=== PATIENT | female | born 1990 | race Caucasian/White ===

== ENCOUNTER 2020-08-13 10:23 | Outpatient (REF) | payer OTHER, SELFPAY ==
[2020-08-13 12:03] LABS: Alanine Aminotransferase 71 U/L (0-31); Albumin Level 4.3 g/dL (3.5-5.0); Alkaline Phosphatase 76 U/L (39-117); Anion Gap 13 (12-20); Aspartate Amino Transferase 82 U/L (5-31); Bilirubin Total 0.6 mg/dL (0.0-1.0); Blood Urea Nitrogen 10 mg/dL (9-16); Calcium 9.6 mg/dL (8.4-10.2); Carbon Dioxide 23 mmol/L (22-29); Chloride 106 mmol/L (96-108); Cholesterol 161 mg/dL; Estimated Glomerular Filt Rate > 60; Glucose Fasting 146 mg/dL (60-99); HDL Cholesterol 29 mg/dL; LDL Cholesterol Calculated 91 mg/dl; Potassium 4.3 mmol/L (3.3-5.1); Sodium 138 mmol/L (135-145); Total Protein 6.9 g/dL (6.5-8.0); Triglycerides 205 mg/dL
[2020-08-13 12:05] LABS: TSH reflex Free T4 0.57 uIU/mL (0.32-4.0)
[2020-08-13 12:14] LABS: Creatinine Urine 187.35 mg/dL; Microalbum/Creatinine Ratio Ur 58.7 ug/mg cr
[2020-08-14 08:43] LABS: HBS Num1 > 1000.00 mIU/mL (0-7.99); ~Hepatitis B Surface Antibody REACTIVE (Nonreactive)
[2020-08-18 09:57] LABS: TS Negative Control Passed; TS Panel A 0; TS Panel B 0; TS Positive Control Passed; TSpotTB Negative (SeeBelow)
== END 2020-08-13 10:24 | disposition home or self-care (01) ==
LOC: HO.HMGCLDS 10:23
PROVIDERS: PCP Internal Medicine; Visit Provider Internal Medicine
DX: I10 Essential (primary) hypertension (principal); E11.9 Type 2 diabetes mellitus without complications; E66.9 Obesity, unspecified
CPT/HCPCS: 36415; 80053; 80061; 82043; 84443; 86481; 86706

== ENCOUNTER → 2020-09-01 12:51 | Outpatient (BNVA) | payer OTHER, SELFPAY | PROVIDERS: PCP Internal Medicine; Visit Provider Physician Assistant | DX: E66.01 Morbid (severe) obesity due to excess calories (principal); Z68.41 Body mass index [BMI] 40.0-44.9, adult | CPT/HCPCS: 99202 ==

== ENCOUNTER 2020-09-18 11:00 | Outpatient (RCR) | payer OTHER, SELFPAY ==
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
--- NOTE | 2020-09-25 08:18 | MHC.PT.DC ---
[employer] [place] Office [place] Office [place] Office [address] Richa Cote [address] [phone] F: [phone] F: [phone] F: [phone] F: [phone] Physical Therapy Discharge Report Diagnosis: CERVICAL SPINE STRAIN Date of Surgery: Date of Evaluation: 09/07/20 Date of Discharge: 09/24/20 Treatments to Date: 2 Cancellations to Date: 0 No Shows to Date: 2 Discharge Status: Visit Non-compliance Discharge Summary: WE WERE ABLE TO INITIATE A HEP AND EDUC Pt RE POSTURE/ IMPORTANCEOF IMPROVED BODY MECH ON HER CERVICAL REGION- Pt NO-SHOWED HER LAST 2 APPTS DESPITE REMINDER CALLS AND TEXTS RE SCHED APPTS AND IS D/C AT THIS TIME- SHE DID NOT MEET HER PT GOALS AT THIS TIME. Electronically signed by: Verito Barker,PT Please sign and return to therapist. Thank you for your referral.
== END 2020-09-25 08:19 | disposition other institution (70) ==
LOC: HO.PTCHIC 11:00
PROVIDERS: PCP Internal Medicine; Visit Provider Internal Medicine
DX: S13.4XXA Sprain of ligaments of cervical spine, initial encounter (principal)
CPT/HCPCS: 97110; 97161; 97530

== ENCOUNTER → 2020-09-29 08:06 | Outpatient (BNVA) | payer OTHER, SELFPAY | PROVIDERS: PCP Internal Medicine; Visit Provider Physician Assistant ==

== ENCOUNTER 2021-04-30 10:53 | Outpatient (REF) | payer OTHER, SELFPAY ==
[2021-04-30 14:25] LABS: Estimated Average Glucose 214 mg/dL; Hemoglobin A1c % 9.1 %
[2021-04-30 14:33] LABS: Alanine Aminotransferase 146 U/L (0-31); Albumin Level 4.7 g/dL (3.5-5.0); Alkaline Phosphatase 101 U/L (39-117); Anion Gap 17 (12-20); Aspartate Amino Transferase 109 U/L (5-31); Bilirubin Total 0.6 mg/dL (0.0-1.0); Blood Urea Nitrogen 10 mg/dL (9-16); Calcium 10.6 mg/dL (8.4-10.2); Carbon Dioxide 21 mmol/L (22-29); Chloride 102 mmol/L (96-108); Cholesterol 174 mg/dL; Estimated Glomerular Filt Rate > 60; Glucose Fasting 265 mg/dL (60-99); HDL Cholesterol 24 mg/dL; LDL Cholesterol Calculated 102 mg/dl; Potassium 4.1 mmol/L (3.3-5.1); Sodium 136 mmol/L (135-145); Total Protein 7.4 g/dL (6.5-8.0); Triglycerides 244 mg/dL
== END 2021-04-30 10:54 | disposition home or self-care (01) ==
LOC: HO.HMGCLDS 10:53
PROVIDERS: PCP Internal Medicine; Visit Provider Internal Medicine
DX: E11.9 Type 2 diabetes mellitus without complications (principal); I10 Essential (primary) hypertension
CPT/HCPCS: 36415; 80053; 80061; 83036

== ENCOUNTER 2022-04-12 09:32 | Outpatient (REF) | payer OTHER, SELFPAY ==
[2022-04-12 12:28] LABS: Alanine Aminotransferase 20 U/L (0-31); Albumin Level 4.8 g/dL (3.5-5.0); Alkaline Phosphatase 70 U/L (39-117); Aspartate Amino Transferase 15 U/L (5-31); Bilirubin Direct 0.2 mg/dL (0.0-0.5); Bilirubin Total 0.3 mg/dL (0.0-1.0); Total Protein 7.6 g/dL (6.5-8.0)
[2022-04-12 14:24] LABS: Estimated Average Glucose 123 mg/dL; Hemoglobin A1C 149.9942 umol/L; Hemoglobin A1c % 5.9 %
[2022-04-12 14:26] LABS: Alanine Aminotransferase 21 U/L (0-31); Albumin Level 4.8 g/dL (3.5-5.0); Alkaline Phosphatase 70 U/L (39-117); Anion Gap 15 (12-20); Aspartate Amino Transferase 16 U/L (5-31); Bilirubin Total 0.3 mg/dL (0.0-1.0); Blood Urea Nitrogen 9 mg/dL (9-16); Calcium 10.4 mg/dL (8.4-10.2); Carbon Dioxide 23 mmol/L (22-29); Chloride 105 mmol/L (96-108); Cholesterol 168 mg/dL; Estimated Glomerular Filt Rate > 60; Glucose Fasting 126 mg/dL (60-99); HDL Cholesterol 33 mg/dL; Iron 74 mcg/dL (30-160); LDL Cholesterol Calculated 97 mg/dl; Percent Iron Saturation 19 % (15-50); Potassium 4.5 mmol/L (3.3-5.1); Sodium 138 mmol/L (135-145); Total Iron Binding Capacity 389 mcg/dL (228-428); Total Protein 7.7 g/dL (6.5-8.0); Triglycerides 194 mg/dL; Unsaturated Iron Binding 315 ug/dL
[2022-04-12 14:59] LABS: Creatinine Urine 39.22 mg/dL; Microalbum/Creatinine Ratio Ur 35.6 ug/mg cr
[2022-04-13 09:37] LABS: Thyroid Peroxidase Antibodies 3 IU/mL (<9)
== END 2022-04-12 09:33 | disposition home or self-care (01) ==
LOC: HO.HMGCLDS 09:32
PROVIDERS: PCP Internal Medicine; Visit Provider Internal Medicine
DX: R74.8 Abnormal levels of other serum enzymes (principal); E11.9 Type 2 diabetes mellitus without complications; E66.01 Morbid (severe) obesity due to excess calories; E78.5 Hyperlipidemia, unspecified; R53.83 Other fatigue; Z68.41 Body mass index [BMI] 40.0-44.9, adult
CPT/HCPCS: 36415; 80053; 80061; 80076; 82043; 82248; 83036; 83540; 84443; 86376

== ENCOUNTER → 2022-04-13 09:13 | Outpatient (BNVA) | payer OTHER, SELFPAY | PROVIDERS: PCP Internal Medicine; Visit Provider Dietitian, Registered | DX: E11.9 Type 2 diabetes mellitus without complications (principal) | CPT/HCPCS: 97802 ==

== ENCOUNTER 2022-06-18 10:00 | Outpatient (REF) | payer OTHER, SELFPAY ==
[2022-06-18 11:17] LABS: MANUAL DIFF FLAG NO
[2022-06-18 11:25] LABS: Basophils Percent Auto 0.4 % (0-2); Eosinophils Absolute Auto 0.3 X10*3/uL (0.0-0.4); Eosinophils Percent Auto 3.4 % (0-4); Hematocrit 41.7 % (37.0-47.0); Imm Gran Abs Auto 0.02 X10*3/uL (0.00-0.03); Imm Gran Pct Auto 0.3 % (0.0-0.4); Lymphocytes Absolute Auto 2.2 X10*3/uL (1.2-4.9); Lymphocytes Percent Auto 29.7 % (20-40); Mean Corpuscular HGB Conc 33.6 g/dl (31.0-35.0); Mean Corpuscular Hemoglobin 28.5 pg (27.0-33.0); Mean Corpuscular Volume 84.9 fL (80.0-98.0); Mean Platelet Volume 11.5 fL (9.4-12.3); Monocytes Absolute Auto 0.6 X10*3/uL (0.1-1.2); Monocytes Percent Auto 7.4 % (2-11); Neutrophils Absolute Auto 4.4 x10*3/uL (2.0-8.3); Neutrophils Percent Auto 58.8 % (45-73); Platelet Count 255 X10*3/uL (160-400); Red Blood Count 4.91 X10*6/uL (4.20-5.50); Red Cell Distribution Width 12.7 % (11.0-16.0); White Blood Count 7.4 X10*3/uL (4.8-10.8)
[2022-06-18 11:47] LABS: Alanine Aminotransferase 25 U/L (0-31); Albumin Level 4.6 g/dL (3.5-5.0); Alkaline Phosphatase 70 U/L (39-117); Anion Gap 11 (12-20); Aspartate Amino Transferase 15 U/L (5-31); Bilirubin Total 0.8 mg/dL (0.0-1.0); Blood Urea Nitrogen 8 mg/dL (9-16); Calcium 10.1 mg/dL (8.4-10.2); Carbon Dioxide 23 mmol/L (22-29); Chloride 111 mmol/L (96-108); Estimated Glomerular Filt Rate > 60; Glucose Fasting 130 mg/dL (60-99); Potassium 3.9 mmol/L (3.3-5.1); Sodium 141 mmol/L (135-145); Total Protein 6.9 g/dL (6.5-8.0)
[2022-06-18 12:05] LABS: TSH reflex Free T4 0.55 uIU/mL (0.32-4.0)
== END 2022-06-18 10:01 | disposition home or self-care (01) ==
LOC: HO.HMGCLDS 10:00
PROVIDERS: PCP Internal Medicine; Visit Provider Internal Medicine
DX: E11.9 Type 2 diabetes mellitus without complications (principal); E78.5 Hyperlipidemia, unspecified; R53.83 Other fatigue
CPT/HCPCS: 80053; 84443; 85025; 87338

== ENCOUNTER → 2022-06-30 13:48 | Outpatient (BNVA) | payer OTHER, SELFPAY | PROVIDERS: PCP Internal Medicine; Visit Provider Dietitian, Registered | DX: E11.9 Type 2 diabetes mellitus without complications (principal) | CPT/HCPCS: 97803 ==

== ENCOUNTER 2022-07-12 08:34 | Outpatient (REF) | payer OTHER, SELFPAY ==
--- NOTE | ~2022-07-12 | US_ITS ---
EXAMINATION: US ABDOMEN COMPLETE CLINICAL INFORMATION: Type 2 diabetes mellitus without complications. COMPARISON: None TECHNIQUE: Real-time imaging of the abdominal viscera. FINDINGS: PANCREAS: Normal. ABDOMINAL AORTA: The proximal, mid, and distal segments are normal in caliber. INFERIOR VENA CAVA: Visualized portions are normal. LIVER: The liver is normal in size. The liver contour is normal. There is diffuse increased liver parenchymal echogenicity, consistent with hepatic steatosis. No focal hepatic lesion. There is no intrahepatic biliary duct dilatation seen. GALLBLADDER: The gallbladder is physiologically distended without evidence of stones, sludge, polyps, wall thickening or pericholecystic fluid. COMMON BILE DUCT: Normal in caliber measuring 0.3 cm in diameter. RIGHT KIDNEY: Normal. No hydronephrosis. No renal calculi or focal parenchymal lesions. The kidney measures 9.7 cm in maximum dimension. LEFT KIDNEY: Normal. No hydronephrosis. No renal calculi or focal parenchymal lesions. The kidney measures 11.2 cm in maximum dimension. SPLEEN: Normal. The spleen measures 11.4 cm in maximum dimension. FREE FLUID: None. US/US abdomen complete IMPRESSION: Hepatic steatosis.
[2022-07-12 10:25] LABS: Estimated Average Glucose 111 mg/dL; Hemoglobin A1c % 5.5 %
[2022-07-12 10:31] LABS: Cholesterol 128 mg/dL; HDL Cholesterol 25 mg/dL; LDL Cholesterol Calculated 84 mg/dl; Triglycerides 97 mg/dL
== END 2022-07-12 08:35 | disposition home or self-care (01) ==
LOC: HO.US 08:34
PROVIDERS: PCP Internal Medicine; Visit Provider Internal Medicine
DX: E78.5 Hyperlipidemia, unspecified (principal); E11.9 Type 2 diabetes mellitus without complications; R53.83 Other fatigue
CPT/HCPCS: 36415; 76700; 80061; 83036

== ENCOUNTER 2022-10-17 09:33 | Outpatient (REF) | payer OTHER, SELFPAY ==
[2022-10-17 11:27] LABS: Appearance Urine Clear; Color Urine Yellow; Glucose Urine UA Negative (Negative); Leukocyte Esterase Urine Negative (Negative); Nitrite Urine Negative (Negative); PH 6.5 (5.0-9.0); Urine Blood Negative (Negative); Urine Ketones Negative (Negative); Urine Protein Negative (Neg-Trace)
[2022-10-17 11:30] LABS: Bacteria Urine None Seen (None Seen); Hyaline Casts Urine 0-2 /LPF (0-2); Squamous Epithelial Cell Urine 0-2 /HPF (0-2); WBC Urine 0-5 /HPF (0-5)
[2022-10-17 11:48] LABS: Baso%MD 0.7 %; Eos%MD 2.4 %; Hematocrit 39.9 % (37.0-47.0); Hemoglobin 13.3 g/dl (12.0-16.0); IG%MD 0.3 %; Lymph%MD 26.2 %; Mean Corpuscular HGB Conc 33.3 g/dl (31.0-35.0); Mean Corpuscular Hemoglobin 29.4 pg (27.0-33.0); Mean Corpuscular Volume 88.3 fL (80.0-98.0); Mean Platelet Volume 11.2 fL (9.4-12.3); Mono%MD 7.9 %; Neut%MD 62.5 %; Platelet Count 280 X10*3/uL (160-400); Red Blood Count 4.52 X10*6/uL (4.20-5.50); Red Cell Distribution Width 12.9 % (11.0-16.0); White Blood Count 8.9 X10*3/uL (4.8-10.8)
[2022-10-17 11:58] LABS: Estimated Average Glucose 103 mg/dL; Hemoglobin A1c % 5.2 %
[2022-10-17 12:11] LABS: Alanine Aminotransferase 16 U/L (0-31); Albumin Level 4.4 g/dL (3.5-5.0); Alkaline Phosphatase 59 U/L (39-117); Anion Gap 10 (12-20); Aspartate Amino Transferase 12 U/L (5-31); Bilirubin Total 0.4 mg/dL (0.0-1.0); Blood Urea Nitrogen 10 mg/dL (9-16); Carbon Dioxide 23 mmol/L (22-29); Chloride 112 mmol/L (96-108); Estimated Glomerular Filt Rate > 60; Glucose Fasting 107 mg/dL (60-99); Potassium 4.3 mmol/L (3.3-5.1); Sodium 141 mmol/L (135-145); Total Protein 6.8 g/dL (6.5-8.0)
[2022-10-17 12:19] LABS: Band Neutrophils Percent 3 % (3-5); Eosinophils Absolute Manual 0.1 X10*3/uL (0.0-0.4); Eosinophils Percent Manual 1 % (0-4); Lymphocytes Absolute Manual 3.2 X10*3/uL (1.2-4.9); Lymphocytes Percent Manual 36 % (20-40); Monocytes Absolute Manual 0.4 X10*3/uL (0.1-1.2); Monocytes Percent Manual 5 % (2-11); Neutrophils Absolute Manual 5.2 X10*3/uL (2.0-8.3); Neutrophils Percent Manual 55 % (45-73)
[2022-10-17 12:20] LABS: Platelet Estimate NORMAL (NORMAL); Platelet Morphology Comment NORMAL; RBC Morphology NORMAL
[2022-10-17 12:30] LABS: TSH reflex Free T4 1.18 uIU/mL (0.32-4.0)
== END 2022-10-17 09:34 | disposition home or self-care (01) ==
LOC: HO.HMGCLDS 09:33
PROVIDERS: PCP Internal Medicine; Visit Provider Internal Medicine
DX: R00.2 Palpitations (principal); E11.65 Type 2 diabetes mellitus with hyperglycemia; G47.30 Sleep apnea, unspecified
CPT/HCPCS: 36415; 80053; 81001; 83036; 84443; 85007; 85027; 87086

== ENCOUNTER → 2022-11-03 13:56 | Outpatient (REF) | payer OTHER, SELFPAY | LOC: HO.SL 13:56 | PROVIDERS: PCP Internal Medicine; Visit Provider Internal Medicine | DX: Z13.89 Encounter for screening for other disorder (principal) ==

== ENCOUNTER → 2022-12-21 09:16 | Outpatient (REF) | payer OTHER, SELFPAY ==
--- NOTE | 2022-12-21 09:18 | HM_ITS ---
Conclusion: 1. Patient was monitored for total period of 3 days 2. Baseline was normal sinus rhythm with average heart rate of 83 beats per minute 3. No significant pauses noted 4. Very rare ectopy noted 5. No patient reported events MTDD
== END ==
LOC: HO.CARD 09:16
PROVIDERS: Visit Provider Internal Medicine
DX: R00.2 Palpitations (principal)
CPT/HCPCS: 93242

== ENCOUNTER → 2022-12-21 09:18 | Outpatient (BNV) | payer OTHER, SELFPAY | PROVIDERS: Visit Provider Internal Medicine Cardiovascular Disease | DX: R00.2 Palpitations (principal) | CPT/HCPCS: 93244 ==

== ENCOUNTER 2023-01-25 15:07 | Outpatient (AMB) | payer OTHER, SELFPAY ==
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
[2023-01-25 16:11] VITALS: BP 132/78; PULSE 78; TEMP 37.3; O2SAT 78; BMI 32.1
== END 2023-01-25 16:49 | disposition home or self-care (01) ==
PROVIDERS: Visit Provider Internal Medicine
DX: R09.89 Other specified symptoms and signs involving the circulatory and respiratory systems (principal)
CPT/HCPCS: 99214

== ENCOUNTER 2023-01-25 16:27 | Outpatient (REF) | payer OTHER, SELFPAY ==
--- NOTE | ~2023-01-25 | XR_ITS ---
EXAMINATION: XR CHEST CLINICAL INFORMATION: Cough. COMPARISON: 9 12/28/2016 chest radiographs. TECHNIQUE: 2 views of the chest were obtained. FINDINGS: No significant abnormality is noted involving the heart, lungs, mediastinum, bony thorax or soft tissues. XR/XR chest 2V IMPRESSION: No acute cardiopulmonary process.
== END 2023-01-25 16:28 | disposition home or self-care (01) ==
LOC: HO.HMGCX 16:27
PROVIDERS: PCP Internal Medicine; Visit Provider Internal Medicine
DX: R05.9 Cough, unspecified (principal)
CPT/HCPCS: 71046

== ENCOUNTER 2023-03-27 12:39 | Outpatient (AMB) | payer OTHER, SELFPAY ==
[2023-03-27 12:49] VITALS: BP 126/76; PULSE 77; O2SAT 98; BMI 35.0
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
== END 2023-03-27 14:34 | disposition home or self-care (01) ==
PROVIDERS: PCP Internal Medicine; Visit Provider Internal Medicine
DX: E11.9 Type 2 diabetes mellitus without complications (principal); R00.2 Palpitations; R09.89 Other specified symptoms and signs involving the circulatory and respiratory systems
CPT/HCPCS: 99213

== ENCOUNTER 2023-06-10 11:00 | Outpatient (AMB) | payer OTHER, SELFPAY ==
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
[2023-06-10 14:25] VITALS: BP 130/80; PULSE 78; O2SAT 99
== END 2023-06-10 15:19 | disposition home or self-care (01) ==
PROVIDERS: PCP Internal Medicine; Visit Provider Physician Assistant Medical
DX: B35.9 Dermatophytosis, unspecified (principal)
CPT/HCPCS: 99051; 99213

== ENCOUNTER 2023-06-23 13:31 | Outpatient (AMB) | payer OTHER, SELFPAY ==
[2023-06-23 13:32] VITALS: BP 118/68; PULSE 82; O2SAT 100; BMI 36.3
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
== END 2023-06-23 14:17 | disposition home or self-care (01) ==
PROVIDERS: PCP Internal Medicine; Visit Provider Internal Medicine
DX: R21 Rash and other nonspecific skin eruption (principal)
CPT/HCPCS: 99213

== ENCOUNTER 2023-09-27 13:08 | Outpatient (AMB) | payer OTHER, SELFPAY ==
[2023-09-27 13:35] VITALS: BP 132/80; PULSE 92; TEMP 36.8; O2SAT 98
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
== END 2023-09-27 14:03 | disposition home or self-care (01) ==
PROVIDERS: PCP Internal Medicine; Visit Provider Nurse Practitioner Family
DX: J06.9 Acute upper respiratory infection, unspecified (principal)
CPT/HCPCS: 99214

== ENCOUNTER 2023-09-27 14:14 | Outpatient (REF) | payer OTHER, SELFPAY ==
[2023-09-27 17:41] LABS: Influenza A PCR NEGATIVE (Negative); Influenza B PCR NEGATIVE (Negative); Resp Syncy Virus RNA Qual PCR NEGATIVE (Negative); SARS COV2 PCR INHOUSE NEGATIVE (Negative)
== END 2023-09-27 14:15 | disposition home or self-care (01) ==
LOC: HO.LAB 14:14
PROVIDERS: Visit Provider Nurse Practitioner Family
DX: J06.9 Acute upper respiratory infection, unspecified (principal)
CPT/HCPCS: 0241U

== ENCOUNTER 2023-10-31 10:52 | Outpatient (AMB) | payer OTHER, SELFPAY ==
[2023-10-31 10:54] VITALS: BP 116/66; PULSE 98; O2SAT 99; BMI 38.0
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
== END 2023-10-31 14:02 | disposition home or self-care (01) ==
PROVIDERS: PCP Internal Medicine; Visit Provider Internal Medicine
DX: N20.0 Calculus of kidney (principal); Z91.018 Allergy to other foods
CPT/HCPCS: 99213

== ENCOUNTER 2023-11-07 11:35 | Outpatient (REF) | payer OTHER, SELFPAY ==
--- NOTE | ~2023-11-07 | US_ITS ---
EXAMINATION: US RETROPERITONEAL LIMITED (RENAL ONLY) CLINICAL INFORMATION: Calculus of kidney. COMPARISON: Ultrasound abdomen complete 07/12/2022. TECHNIQUE: Real-time imaging of the kidneys. FINDINGS: RIGHT KIDNEY: 9.3 x 4.3 x 6.3 cm (SAG x AP x TRV). The kidney is normal in size, contour, and echogenicity. Renal cortical thickness is normal. No calculi or focal parenchymal lesions. No hydronephrosis. LEFT KIDNEY: 11.6 x 4.9 x 4.8 cm (SAG x AP x TRV). The kidney is normal in size, contour, and echogenicity. Renal cortical thickness is normal. No calculi or focal parenchymal lesions. No hydronephrosis. Incidental note made of an echogenic liver consistent with hepatic steatosis similar to 07/12/2022. US/US renal BI IMPRESSION: Normal-appearing kidneys without calculi.
== END 2023-11-07 11:36 | disposition home or self-care (01) ==
LOC: HO.HMGCX 11:35
PROVIDERS: PCP Internal Medicine; Visit Provider Internal Medicine
DX: N20.0 Calculus of kidney (principal)
CPT/HCPCS: 76775

== ENCOUNTER 2023-12-05 07:11 | Outpatient (REF) | payer OTHER, SELFPAY ==
[2023-12-05 10:10] LABS: MANUAL DIFF FLAG NO
[2023-12-05 10:16] LABS: Appearance Urine Turbid; Color Urine Yellow; Glucose Urine UA Negative (Negative); Leukocyte Esterase Urine Trace (Negative); Nitrite Urine Negative (Negative); PH 5.5 (5.0-9.0); UMIC TRIGGER UA YES; Urine Blood Small (1+) (Negative); Urine Ketones Negative (Negative); Urine Protein Negative (Neg-Trace)
[2023-12-05 10:22] LABS: Basophils Percent Auto 0.5 % (0-2); Eosinophils Absolute Auto 0.2 X10*3/uL (0.0-0.4); Eosinophils Percent Auto 2.7 % (0-4); Hematocrit 39.4 % (37.0-47.0); Hemoglobin 13.3 g/dl (12.0-16.0); Imm Gran Abs Auto 0.01 X10*3/uL (0.00-0.03); Imm Gran Pct Auto 0.1 % (0.0-0.4); Lymphocytes Absolute Auto 2.5 X10*3/uL (1.2-4.9); Mean Corpuscular HGB Conc 33.8 g/dl (31.0-35.0); Mean Corpuscular Hemoglobin 29.5 pg (27.0-33.0); Mean Corpuscular Volume 87.4 fL (80.0-98.0); Mean Platelet Volume 11.3 fL (9.4-12.3); Monocytes Absolute Auto 0.7 X10*3/uL (0.1-1.2); Monocytes Percent Auto 8.7 % (2-11); Neutrophils Absolute Auto 4.3 x10*3/uL (2.0-8.3); Platelet Count 263 X10*3/uL (160-400); Red Blood Count 4.51 X10*6/uL (4.20-5.50); Red Cell Distribution Width 13.2 % (11.0-16.0); White Blood Count 7.7 X10*3/uL (4.8-10.8)
[2023-12-05 10:31] LABS: Estimated Average Glucose 114 mg/dL; Hemoglobin A1C 132.7767 umol/L; Hemoglobin A1c % 5.6 % (<6.0)
[2023-12-05 10:32] LABS: Bacteria Urine 2+ (None Seen); Hyaline Casts Urine 0-2 /LPF (0-2); RBC Urine 0-2 /HPF (0-2)
[2023-12-05 11:17] LABS: Alanine Aminotransferase 21 U/L (0-31); Albumin Level 4.2 g/dL (3.5-5.0); Alkaline Phosphatase 61 U/L (39-117); Anion Gap 10 (12-20); Aspartate Amino Transferase 20 U/L (5-31); Bilirubin Total 0.3 mg/dL (0.0-1.0); Blood Urea Nitrogen 9 mg/dL (9-16); Calcium 9.8 mg/dL (8.4-10.2); Carbon Dioxide 23 mmol/L (22-29); Chloride 111 mmol/L (96-108); Cholesterol 135 mg/dL (<200); Estimated Glomerular Filt Rate > 60; Glucose Fasting 103 mg/dL (60-99); HDL Cholesterol 28 mg/dL (>40); LDL Cholesterol Calculated 87 mg/dL (<100); Potassium 4.2 mmol/L (3.3-5.1); Sodium 140 mmol/L (135-145); Triglycerides 104 mg/dL (<150)
== END 2023-12-05 07:12 | disposition home or self-care (01) ==
LOC: HO.HMGCLDS 07:11
PROVIDERS: PCP Internal Medicine; Visit Provider Internal Medicine
DX: Z13.9 Encounter for screening, unspecified (principal); N20.0 Calculus of kidney
CPT/HCPCS: 36415; 80053; 80061; 81001; 81003; 83036; 85025; 99202

== ENCOUNTER 2023-12-05 14:49 | Outpatient (AMB) | payer OTHER, SELFPAY ==
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
== END 2023-12-05 15:35 | disposition home or self-care (01) ==
PROVIDERS: PCP Internal Medicine; Visit Provider Nurse Practitioner Family
DX: Z13.9 Encounter for screening, unspecified (principal); N20.0 Calculus of kidney
CPT/HCPCS: 99203

== ENCOUNTER 2023-12-08 12:50 | Outpatient (AMB) | payer OTHER, SELFPAY ==
[2023-12-08 13:09] VITALS: BP 125/75; PULSE 86; O2SAT 97; BMI 41.6
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
== END 2023-12-08 13:34 | disposition home or self-care (01) ==
PROVIDERS: PCP Internal Medicine; Visit Provider Internal Medicine
DX: Z00.00 Encounter for general adult medical examination without abnormal findings (principal); E66.01 Morbid (severe) obesity due to excess calories; Z68.41 Body mass index [BMI] 40.0-44.9, adult; E78.5 Hyperlipidemia, unspecified; R73.9 Hyperglycemia, unspecified
CPT/HCPCS: 99395

== ENCOUNTER 2023-12-08 13:35 | Outpatient (REF) | payer OTHER, SELFPAY ==
[2023-12-08 16:51] LABS: TSH reflex Free T4 0.74 uIU/mL (0.32-4.0)
== END 2023-12-08 13:36 | disposition home or self-care (01) ==
LOC: HO.HMGCLDS 13:35
PROVIDERS: PCP Internal Medicine; Visit Provider Internal Medicine
DX: E66.01 Morbid (severe) obesity due to excess calories (principal); Z68.41 Body mass index [BMI] 40.0-44.9, adult
CPT/HCPCS: 36415; 84443

== ENCOUNTER 2024-08-16 15:10 | Outpatient (REF) | payer OTHER, SELFPAY ==
[2024-08-16 16:10] LABS: MANUAL DIFF FLAG NO
[2024-08-16 16:34] LABS: Basophils Absolute Auto 0.1 X10*3/uL (0.0-0.2); Basophils Percent Auto 0.5 % (0-2); Eosinophils Absolute Auto 0.4 X10*3/uL (0.0-0.4); Eosinophils Percent Auto 3.1 % (0-4); Hematocrit 43.5 % (37.0-47.0); Hemoglobin 14.4 g/dl (12.0-16.0); Imm Gran Abs Auto 0.06 X10*3/uL (0.00-0.03); Imm Gran Pct Auto 0.5 % (0.0-0.4); Lymphocytes Absolute Auto 3.3 X10*3/uL (1.2-4.9); Lymphocytes Percent Auto 25.4 % (20-40); Mean Corpuscular HGB Conc 33.1 g/dl (31.0-35.0); Mean Corpuscular Hemoglobin 28.7 pg (27.0-33.0); Mean Corpuscular Volume 86.8 fL (80.0-98.0); Mean Platelet Volume 11.4 fL (9.4-12.3); Monocytes Absolute Auto 0.8 X10*3/uL (0.1-1.2); Neutrophils Absolute Auto 8.3 x10*3/uL (2.0-8.3); Neutrophils Percent Auto 64.5 % (45-73); Platelet Count 302 X10*3/uL (160-400); Red Blood Count 5.01 X10*6/uL (4.20-5.50); Red Cell Distribution Width 13.7 % (11.0-16.0); White Blood Count 12.8 X10*3/uL (4.8-10.8)
[2024-08-16 16:46] LABS: Estimated Average Glucose 128 mg/dL; Hemoglobin A1C 164.1404 umol/L; Hemoglobin A1c % 6.1 % (<6.0); Total Hemoglobin (HGBA1C) 3789.2158 umol/L
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
--- OUTSIDE RECORDS SUMMARY | 2024-08-16 17:16 | XMS_ITS | Encounter Summary ---
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 [address] [place] [address] Social History Tobacco Use Types Packs/Day Years Used Date Smoking Tobacco: Every Day Cigarettes Cigars Smokeless Tobacco: Current Comments:4 years smoking his tory - 6 cigarretes / day Alcohol Use Standard Drinks/Week Comments No 0 (1 standard drink = 0.6 oz pur e alcohol) rare socail use Comments No Sex and Gender Information Value Date Recorded Sex Assigned at Not on file Legal Sex Female 6:47 AM PDT Gender Identity Not on file Sexual Orientation Not on file 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 Author Decrease soda or juice intake Diet No Gely Carpio RD Have 3 meals a day Diet No Gely Carpio RD Increase physical activity Exercise No Gely Carpio RD documented as of this encounter Visit Diagnoses Not on filedocumented in this encounter Care Teams Seam Stay Stitcher Relationship Specialty Start Date End Date Linsey Mullins PA-C [facility] [place] [address] PCP - General 07/24/18 documented as of this encounter
--- OUTSIDE RECORDS SUMMARY | 2024-08-16 17:16 | XMS_ITS | Data Portability ---
Author Organization LEANNA Leon s, [address] Address [address] [place] [address] Care Team Providers Care Heat Reader Name Role Phone [facility] Primary Care Provider [phone] Assessment No assessment recorded. Plan of Treatment Reminders Order Date Submit Date Provider Last Modified By Organization Details Last Modified Time Details Appointments None recorded. Lab rapid flu (A+B) 2022 023 [email or web address] [id number]_[facility], [address] [place] [address], [id number], 3 10:08:57 rapid strep group A, throat 2022 023 [email or web address] 20999_[facility], [address] [place] [address], [phone], 3 10:08:59 culture, respiratory [address] [facility], [address] [place] [address], [address], 3 08:06:37 hepatitis B surface Ab, quantitativ e, serum [address] [facility], [address] [place] [address], [address], 3 08:09:23 varicella zoster virus IgG Ab, QN, IA, serum [address] [facility], [address] [place] [address], [address], 3 08:09:25 measles + mumps + rubella virus IgG panel, QN, serum or plasma 2022 023 [facility] [address] [place] [address], [place], [address], 3 08:09:20 Referral None recorded. Procedures None recorded. Surgeries None recorded. Imaging None recorded. Medication Orders benzonatate 200 mg capsule 2023 024 [facility]armacy #1095, [address] [place] [address], [address], 4 12:35:42 fluticasone propionate 50 mcg/actuati on nasal spray,suspe nsion 2023 024 [facility] [address] [place] [address], [address], 4 12:35:31 amoxicillin 400 mg-potassiu m clavulanate 57 mg/5 mL oral suspension 2022 023 [facility] [address] [place] [address], [address], 3 09:41:34 Tubersol 5 tub. unit/0.1 mL intradermal injection solution 2022 023 [address], [address] [place] [address], [address], 3 18:36:02 nystatin 100,000 unit/mL oral suspension [address]/Pharmacy #0818, [address] [place] [address], [address], 3 18:35:51 pantoprazol e 40 mg tablet,shipli yed release [address]/Pharmacy #0818, [address] [place] [address], [address], 3 18:35:54 Patient TargetsNo targets recorded. Patient Instructions Encounter Date Encounter Id Patient Instructions Last Modified By Organization Details Last Modified Time 06/12/2022 [id number] What is acid reflux? Acid reflux is when the acid that is normally in your stomach backs up into the esophagus. The esophagus is the tube that carries food from your mouth to your stomach. When acid reflux causes bothersome symptoms or damage, doctors call it gastroesophageal reflux disease or GERD. What are the symptoms of acid reflux? The most common symptoms are: ? Heartburn, which is a burning feeling in the chest ? Regurgitation, which is when acid and undigested food flow back into your throat or mouth Other symptoms might include: ? Stomach or chest pain ? Trouble swallowing ? Having a raspy voice or a sore throat ? Unexplained cough ? Nausea or vomiting Is there anything I can do on my own to feel better? Yes. You might feel better if you: ? Lose weight (if you are overweight) ? Raise the head of your bed by 6 to 8 inches ? You can do this by putting blocks of wood or rubber under 2 legs of the bed or a foam wedge under the mattress. ? Avoid foods that make your symptoms worse ? For some people these include coffee, chocolate, alcohol, peppermint, and fatty foods. ? Stop smoking, if you smoke ? Avoid late meals ? Lying down with a full stomach can make reflux worse. Try to plan meals for at least 2 to 3 hours before bedtime. ? Avoid tight clothing ? Some people feel better if they wear comfortable clothing that does not squeeze the stomach area. How is acid reflux treated? There are a few main types of medicines that can help with the symptoms of acid reflux. The most common are antacids, histamine blockers, and proton pump inhibitors. All of these medicines work by reducing or blocking stomach acid. But they each do that in a different way. ? For mild symptoms, antacids can help, but they work only for a short time. Histamine blockers are stronger and last longer than antacids. You can buy antacids and most histamine blockers without a prescription. ? For frequent and more severe symptoms, proton pump inhibitors are the most effective medicines. Some of these medicines are sold without a prescription. But there are other versions that your doctor can prescribe. Sometimes, medicines cost less if you get them with a doctor's prescription. Other times, non-prescription medicines cost less. If you are worried about cost, ask your pharmacist about ways to pay less for your medicines. Should I see a doctor or nurse about my acid reflux? Some people can manage their acid reflux on their own by changing their habits or taking non-prescription medicines. But you should see a doctor or nurse if: ? Your symptoms are severe or last a long time ? You cannot seem to control your symptoms ? You have had symptoms for many years You should also see a doctor or nurse right away if you: ? Have trouble swallowing, or feel as though food gets stuck on the way down ? Lose weight when you are not trying to ? Have chest pain ? Choke when you eat ? Vomit blood or have bowel movements that are red, black, or look like tar What if my child or teenager has acid reflux? If your child or teenager has acid reflux, take them to see a doctor or nurse. Do not give your child medicines to treat acid reflux without talking to a doctor or nurse. In children, acid reflux can be caused by a number of problems. It's important to have a doctor or nurse check for these problems before trying any treatments. Not available 06/12/2022 19:32:05 Patients should be advised to change their toothpaste to a sodium lauryl sulfate (SLS)-free formulation. An increased frequency of recurrent aphthous stomatitis (HALLEY) related to SLS-containing dentifrice has been reported, although other studies found no such association. However, because SLS-dentifrices are in widespread use, it seems unlikely that this agent truly predisposes to, or causes, most HALLEY. Patients should also be instructed to avoid recognized trigger foods, and acidic foods and drinks. There is some evidence of benefit from vitamin B12, even in the absence of any deficiency; supplementation with oral vitamin B12 (cyanocobalamin) has been shown to be effective in studies, irrespective of serum B12 levels. Adjunctive antimicrobial agents may also be of some value, in part by reducing secondary infection. These may reduce the severity and pain of ulceration. [ [email or web address] Not available 06/12/2022 19:34:51 12/22/2022 [id number] This physical do es not replace the annual physical to be performed by your PCP. There may be additional screening tests that they will perform that we do not in the urgent care setting. Failure to follow up as recommended may result in significant adverse health consequences. ? If your symptoms worsen or you develop new symptoms that concern you, go to the emergency department for further evaluation. Not available 12/22/2022 12:54:19 02/01/2023 [id number] keeping ears dry : care instructions Not available 02/01/2023 18:46:31 perforated eardr um: care instructions Not available 02/01/2023 18:46:31 04/19/2023 [id number] middle ear fluid : care instructions Not available 04/19/2023 10:13:06 Acute Sinusitis: Care Instructions Not available 04/19/2023 10:08:56 sore throat: car e instructions Not available 04/19/2023 10:08:56 Based on your Presentation, Exam, and Lab Testing you are being diagnosed with Pharyngitis. Your Rapid Strep Test was Negative. Most likely your sore throat is being caused by a virus, post nasal drip, or silent acid reflux. I am going to send a Throat Culture to the lab for you to make sure you don't have a different form of strep in your throat. This will take about 72 hours for that result to return. We will contact you if it positive - if for some reason you don't get a copy of your results or hear from us - please contact our office. In most cases, the fluid clears up within a few months without treatment. You may need more tests if the fluid does not clear up after 3 months. For adults, decongestants that you take by mouth or spray into your nose may be helpful. If you have allergies, the doctor may prescribe a steroid medicine that you spray into your nose. The following are my other recommendations to help with symptoms and is important for this diagnosis: 1. Do not share any food or drinks - strep is passed through direct saliva exchange (NOT IN THE AIR) 2. Change your toothbrush in 3-4 days so that you don't re-infect yourself after you complete the antibiotic. 3. Take Ibuprofen or Tylenol if you do not have any allergies to these medications. If you take a blood thinner you should not take NSAIDS like Ibuprofen. These medication will help with the inflammation in your respiratory tract which should help the cough. (I would alternate between Tylenol 650 mg and your Ibuprofen 600 mg every 4 hours) 4. Do not take any Cold Medications that have a Decongestant in it - this will dry out your throat and make the sore throat worse. 5. Drinking Hot Tea with honey can help coat and soothe your throat. 6. You would be considered contagious for the next 24-48 hours, or until fever resolves. I would be seen again if you develop any of the following symptoms. 1. Fever > 101.0 2. Stiff neck - where you can't turn your neck 3. Trouble swallowing your saliva - drooling 4. Swelling of a lymph node in your throat that is painful to touch 5. Difficulty breathing 6. Severe Headache Thank you for using [facility] today, please feel free to contact our office if you have any questions or concerns. Not available 04/19/2023 10:13:04 04/15/2024 [id number] upper respirator y infection (cold): care instructions [email or web address] Not available 04/15/2024 12:35:28 Reason for Referral None Reported. Results Created Date Observation Date Name Description Value Unit Range Abnormal Flag Note LastModifiedBy Organization Detail LastModifiedTime 12/23/1912/23/2022 MEASL ES/MU MPS/R UBELL A IMMUN ITY rubella antibodies, IgG 2.86 index immune >0.99 Non-i mmune <0.90 Equiv ocal 0.90 - 0.99 Immun e >0.99 Not Available [facility] ([facility]) [address] [facility], [place], [address], 12/23/2022 08:09:20 12/23/1912/23/2022 MEASL ES/MU MPS/R UBELL A IMMUN ITY measles antibodies, IgG 85.7 AU/mL immune >16.4 Negat vini <13.5 Equiv ocal 13.5 - 16.4 Posit vini >16.4 Prese nce of antib odies to Rubeo la is presu mptiv e evide nce of immun ity excep t when acute infec tion is suspe cted. Not Available [facility] ([facility]) [address] [facility], [place], [address], 12/23/2022 08:09:20 12/23/1912/23/2022 MEASL ES/MU MPS/R UBELL A IMMUN ITY mumps abs, IgG 44.4 AU/mL immune >10.9 Negat vini <9.0 Equiv ocal 9.0 - 10.9 Posit vini >10.9 A posit vini resul t gener ally indic ates past expos ure to Mumps virus or previ ous vacci natio n. Not Available [facility] ([facility]) [address] [facility], [place], [address], 12/23/2022 08:09:20 12/23/1912/23/2022 HEPAT ITIS B SURF AB QUANT hepatitis B surf Ab quant >1000. 0 mIU/m L immuni ty>9.9 Statu s of Immun ity Anti- HBs Level ----- ----- ----- --- ----- ----- ---- Incon siste nt with Immun ity 0.0 - 9.9 Consi stent with Immun ity >9.9 Not Available [facility] ([facility]) [address] [facility], [place], [address], 12/23/2022 08:09:22 12/23/1912/23/2022 VARIC HADLEY- ZOSTE R V AB, IGG varicella zoster IgG 776 index immune >165 Negat vini <135 Equiv ocal 135 - 165 Posit vini >165 A posit vini resul t gener ally indic ates expos ure to the patho gen or admin istra tion of speci fic immun oglob ulins , but it is not indic ation of activ e infec tion or stage of disea se. Not Available [facility] ([facility]) [address] [facility], [place], [address], 12/23/2022 08:09:25 04/19/2004/23/2023 UPPER RESPI RATOR Y CULTU RE upper respiratory culture FINAL REPORT Not Available [facility] ([facility]) [address] [facility], [place], [address], 04/23/2023 08:06:37 04/19/2004/23/2023 UPPER RESPI RATOR Y CULTU RE result 1 COMMEN T Routi ne respi rator y des Not Available [facility] ([facility]) [address] [facility], [place], [address], 04/23/2023 08:06:37 04/19/20 23 04/19/2023 rapid strep group A, throa t Unknown Analyte negati ve Not Available [facility] [address] [place], [address], 04/19/2023 09:55:37 04/19/20 23 04/19/2023 rapid strep group A, throa t Unknown Analyte yes Not Available [address] [place], [address], 04/19/2023 09:55:37 04/19/20 23 04/19/2023 rapid flu (A+B) Unknown Analyte negati ve Not Available [address] [address] [place], [address], 04/19/2023 09:55:20 04/19/20 23 04/19/2023 rapid flu (A+B) Unknown Analyte negati ve Not Available [address] [place], [address], 04/19/2023 09:55:20 04/19/20 23 04/19/2023 rapid flu (A+B) Unknown Analyte yes Not Available [id number] [address] [place], [address], 04/19/2023 09:55:20 Result Notes None recorded. Problems Name Problem SNOMED Code Status Onset Date Resolution Date Notes Provider Name and Address Organization Details Recorded Time Anxiety 21530456 Active 023 BENJAMIN FRANCES null, PA - [facility] 3 19:03:37 Diabetes mellitus 98536568 Active 023 BENJAMIN FRANCES null, PA - [facility] 3 19:03:41 Problem Notes None recorded. Procedures Surgical History Date Name Laterality Status Provider Name and Address Organization Details Recorded Time 12/23/19 23 OC-UDS Send Out Template NON DOT completed Bekah Piffard PA - [facility] 12/22/2022 13:14:25 12/23/19 23 OC - Venipuncture Template completed Bekah Bull PA - [facility] 12/22/2022 13:14:48 12/23/19 23 OC- Physical completed Bekah Piffard PA - [facility] 12/22/2022 13:49:31 Imaging Results None recorded. Procedure Notes None recorded. Medical Equipment None Reported. Allergies No known drug allergies Medications Name Sig Start Date Stop Date Status Note LastModified by Organization Details LastModified Time cyclobenzap rine 10 mg tablet TAKE 1 TABLET BY MOUTH EVERYDAY AT BEDTIME 02/01 completed Not Available Not Available Not Available buspirone 5 mg tablet TAKE 1 TABLET BY MOUTH TWICE A DAY 02/01 completed Not Available Not Available Not Available nystatin 100,000 unit/mL oral suspension SWISH 5 ML 4 TIMES A DAY FOR 10 DAYS 02/01 completed Not Available Not Available Not Available benzonatate 200 mg capsule Take 1 capsule 3 times a day by oral route for 5 days. 2023 active Not Available Not Available Not Avai lable meloxicam 15 mg tablet TAKE 1 TABLET BY MOUTH EVERY DAY 02/01 completed Not Available Not Available Not Available FreeStyle Lancets 28 gauge USE TO TEST BLOOD SUGAR ONCE A DAY 02/01 completed Not Available Not Available Not Available prednisone 20 mg tablet TAKE 2 TABLETS BY MOUTH EVERY DAY FOR 5 DAYS 02/01 completed Not Available Not Available Not Available Tubersol 5 tub. unit/0.1 mL intradermal injection solution Inject 0.1 mL by intraderm al route. 02/01 completed NR RTR Not Available Not Available Not Available metformin 850 mg tablet TAKE 1 TABLET BY MOUTH TWICE A DAY 02/01 completed Not Available Not Available Not Available amoxicillin 400 mg-potassiu m clavulanate 57 mg/5 mL oral suspension Take 10 mL twice a day by oral route for 10 days. 04/19 completed Not Available Not Available Not Available pantoprazol e 40 mg tablet,shilpi yed release TAKE 1 TABLET BY MOUTH EVERY DAY IN THE MORNING FOR 15 DAYS 02/01 completed Not Available Not Available Not Available norethindro ne (contracept vini) 0.35 mg tablet TAKE 1 TABLET BY MOUTH EVERY DAY 02/01 completed Not Available Not Available Not Available bromphenira mine-pseudo ephedrine-D M 2 mg-30 mg-10 mg/5 mL oral syrup TAKE 10 MILLILITE R (ORAL) EVERY 6 HOURS NEEDED FOR COUGH 02/01 completed Not Available Not Available Not Available fluticasone propionate 50 mcg/actuati on nasal spray,suspe nsion Orion 2 sprays every day by intranasa l route for 30 days. 2023 active Not Available Not Available Not Avai lable sertraline 50 mg tablet TAKE 1/2 TABLET BY MOUTH DAILY FOR 3 DAYS THEN TAKE 1 TABLET DAILY 02/01 completed Not Available Not Available Not Available amoxicillin 875 mg-potassiu m clavulanate 125 mg tablet TAKE 1 TABLET BY MOUTH TWICE A DAY FOR 10 DAYS 02/01 completed Not Available Not Available Not Available June (21) 1.5 mg-30 mcg tablet TAKE 1 TABLET BY MOUTH EVERY DAY 02/01 completed Not Available Not Available Not Available Depo-Buccaro a active Not Available Not Available Not Available FreeStyle Lite Strips USE TO TEST BLOOD SUGAR ONCE A DAY 02/01 completed Not Available Not Available Not Available Vitals Date Recorded Body height Body mass index (BMI) Body weight Respiratory rate Body temperature Oxygen saturation Oxygen saturation in Arterial blood by Pulse oximetry Heart rate Systolic blood pressure Diastolic blood pressure Provider Name and Address Organization Details Last Updated DateTime 3 154.94 cm 46.1 kg/m2 702265. 54 g 18 /min 97.5 [degF] 99 % 99 % 88 /min 122 mm[Hg] 85 mm[Hg] BORIS BLOUNT PA - [facility] 3 18:37:59 Date Recorded Body height Body mass index (BMI) Body weight Pain severity - 0-10 verbal numeric rating [Score] - Reported Body temperature Respiratory rate Heart rate Oxygen saturation Oxygen saturation in Arterial blood by Pulse oximetry Systolic blood pressure Diastolic blood pressure Provider Name and Address Organization Details Last Updated DateTime 3 154.94 cm 35.5 kg/m2 39767.3 7 g 0 98.6 [degF] 18 /min 82 /min 99 % 99 % 137 mm[Hg] 84 mm[Hg] Noemi Millse PA - [facility] 3 09:42:42 Date Recorded Body height Body mass index (BMI) Body weight Pain severity - 0-10 verbal numeric rating [Score] - Reported Heart rate Respiratory rate Body temperature Oxygen saturation Oxygen saturation in Arterial blood by Pulse oximetry Systolic blood pressure Diastolic blood pressure Provider Name and Address Organization Details Last Updated DateTime 3 154.94 cm 46.1 kg/m2 291269. 54 g 0 77 /min 19 /min 98.6 [degF] 99 % 99 % 130 mm[Hg] 77 mm[Hg] BENJAMIN FRANCES PA - [facility] 3 19:09:14 Date Recorded Body height Body mass index (BMI) Body weight Oxygen saturation Oxygen saturation in Arterial blood by Pulse oximetry Pain severity - 0-10 verbal numeric rating [Score] - Reported Heart rate Respiratory rate Body temperature Systolic blood pressure Diastolic blood pressure Provider Name and Address Organization Details Last Updated DateTime 4 154.94 cm 35.5 kg/m2 17526.3 7 g 99 % 99 % 0 94 /min 18 /min 98.7 [degF] 118 mm[Hg] 85 mm[Hg] Shanelle Duggan PA - [facility] 12:19:09 Social History Question Answer Notes LastModified by Organizat ion Details LastModified Time Tobacco Smoking Status Former Smoker BENJAMIN FRANCES alessio, PA - [facility] 06/12/2022 19:05:48 What Is Your Level Of Alcohol Consumption? None Information not available 06/12/2022 Are You Currently Employed? Yes Information not available 06/12/2022 Have You Had A Flu Shot This Season? No Information not available 04/15/2024 If No, Would You Like A Flu Shot Today? No Information not available 04/15/2024 Do You Use Any Illicit Or Recreational Drugs? No Information not available 06/12/2022 Have You Recently Traveled Abroad? No Information not available 06/12/2022 Are You Currently In School? No Information not available 06/12/2022 Sex: Unknown Functional Status None recorded. Mental Status None recorded. Family History Relationship Description Onset Age of this Age Resolved Age Notes LastModified by Organization Details LastModified Time Father Diabetes mellitus [email or web address] Not available 06/12 19:04:44 Mother Diabetes mellitus [email or web address] Not available 06/12 19:04:44 Medical History No medical history recorded. Gynecological History Statement/Question Response Date of LMP Obstetrics History GPAL:G 0 P 0 0 0 0 Past Encounters Encounter ID Performer Location Encounter Start Date Encounter Closed Date Diagnosis/Indication Diagnosis SNOMED-CT Code Diagnosis ICD10 Code Diagnosis Note [id number] [address] [place] [address] 12/14/2017 10:33:32 12/14/2017 11:18:01 [id number] [address] [place] [address] 04/08/2022 16:55:42 04/08/2022 17:23:39 [id number] [address] [place] [address] 03/02/2020 11:28:49 03/02/2020 16:18:16 [id number] [address] [place] [address] 02/24/2018 10:15:48 02/24/2018 11:35:54 [id number] [address] [place] [address] 03/20/2020 15:25:04 03/20/2020 16:37:37 [id number] [address] [place] [address] 03/29/2020 13:27:01 03/29/2020 14:00:55 [id number] [address] [place] [address] 06/23/2020 16:25:42 06/23/2020 17:56:33 [id number] [address] [place] [address] 07/14/2018 16:16:11 07/14/2018 17:01:30 [id number] [address] [place] [address] 06/07/2019 18:00:35 06/07/2019 18:29:50 [id number] [place] [address] 01/25/2022 11:37:37 01/25/2022 13:19:47 [id number] Ramon Nation [place] [address] [place] [address] 06/12/2022 18:43:19 06/12/2022 19:36:58 Aphthous ulcer of mouth 732140144 K12.0 Gastro-eso phageal reflux disease with esophagitis 039208713 K21.00 [id number] Ramon Nation [place] [address] [place] [address] 12/22/2022 12:16:45 12/22/2022 14:09:45 Tuberculosis screening 048292518 Z11.1 History an d physical examination, pre-employment 452341538 Z02.1 History an d physical examination, occupation [id number] Z02.1 [id number] [place] [id number] [place] [address] 02/01/2023 17:59:53 02/01/2023 18:58:20 Acute left otitis media 958615155 H66.92 Based on your Presentati on, Exam, and Lab Testing you are being diagnosed with otitis media I am going to prescribe you and antibiotic to cover this infection. Please be sure to complete the full course of this antibiotic to prevent antibiotic resistance . It is also important to complete this antibiotic because this infection is what causes Scarlet Fever/Rheu matic Heart Disease. Antibiotic s will typically take 4-5 days to start to work with symptom improvemen t. The following are my other recommenda tions to help with symptoms and is important for this diagnosis: 1. Take Ibuprofen or Tylenol if you do not have any allergies to these medication s. If you take a blood thinner you should not take NSAIDS like Ibuprofen. These medication will help with the inflammati on in your respirator y tract which should help the cough. (I would alternate between Tylenol 650 mg and your Ibuprofen 600 mg every 4 hours)2. Do not take any Cold Medication s that have a Decongesta nt in it - this will dry out your throat and make the sore throat worse.3. Drinking Hot Tea with honey can help coat and soothe your throat. I would be seen again if you develop any of the following symptoms.1 . Fever > 101.02. Stiff neck - where you can't turn your neck3. Trouble swallowing your saliva - drooling4. Swelling of a lymph node in your throat that is painful to touch5. Difficulty breathing6 . Severe Headache Thank you for using [facility] today, please feel free to contact our office if you have any questions or concerns. [id number] Ale Ramirez [place] [address] [address] [facility] [place] [address] 04/19/2023 09:31:52 04/19/2023 10:10:48 Upper respiratory infection [id number] J06.9 Infection by bacteria or a virus causes most sore throats. Cigarette smoke, dry air, air pollution, allergies, and yelling can also cause a sore throat. Sore throats can be painful and annoying. Fortunatel y, most sore throats go away on their own. If you have a bacterial infection, your doctor may prescribe antibiotic s.Follow-u p care is a ware part of your treatment and safety. Be sure to make and go to all appointmen ts, and call your doctor if you are having problems. It's also a good idea to know your test results and keep a list of the medicines you take. Acute sero us otitis media of bilateral ears [id number] H65.03 luid often builds up inside the ear during a cold or allergies. Usually the fluid drains away, but sometimes a small tube in the ear, called the eustachian tube, stays blocked for months.Sym ptoms of fluid buildup may include:Po pping, ringing, or a feeling of fullness or pressure in the ear.Troubl e hearing.Ba deana problems and dizziness. In most cases, you can treat yourself at home. [id number] LEANNA Holguin 21009_Had [address] [address] 04/15/2024 12:11:42 04/15/2024 12:36:35 Upper respiratory infection [id number] J06.9 Patient presented with symptoms of upper respirator y infection. Advised to drink plenty of fluids, run a cool-mist humidifier in room at night, gargle salt water for sore throat, and get plenty of rest. Patient should avoid over-exert ion and reduce exposure to irritants such as smoke, cold, dry air, and dust.Treat ment currently involves symptomati c relief. Nasal sprays like nasonex and flonase (or generic) as well as neti pot to help clear sinuses Patient may take acetaminop hen or ibuprofen as directed to reduce fever and body aches.Anti histamine and decongesta nt usage was discussed and recommenda tions made.Teetee nt understood these instructio ns and will follow up in the office in 10 days to 2 weeks if symptoms not improving. ER if any shortness of breath/gila st pain or worsening. Thank you for using [facility] today, please feel free to contact our office if you have any questions or concerns. Health Concerns Section Related Observation LastModified by Organization Detai ls LastModified Time None Recorded Concern Status LastModified by Organization Details LastModified Time None Recorded Advance Directives Directive None Recorded Payers Encounter Date Sequence Insurance Name Policy Number Policy Deluna Covered Member ID Deluna Member ID Guarantor Name 06/12/2022 1 [facility] PLAN (MEDICAID HMO) JERALD Valles [id number] Jade Valles 12/22/2022 OC-ESCREEN Jade Valles [id number] Jade Valles 02/01/2023 1 [facility] PLAN (MEDICAID HMO) JERALD Valles [id number] Jade Valles 04/19/2023 1 [facility] PLAN (MEDICAID HMO) JERALD Valles [id number] Jade Valles 04/15/2024 1 [facility] PLAN (MEDICAID HMO) JERALD Valles [id number] Jade Valles Notes Date Note Type Note Provider Name and Address Organization Details Recorded Time 3 text/html sore and dry mouth due to diabetes now developing burning sensation in food tube and stomach with nausea at times. Ramon Nation NP [address] [place], [address], [place] - [facility] 06/12/2022 19:35:10 3 text/html physical Ramon Nation NP [address] [place], [address], [place] - [facility] 12/22/2022 14:06:44 3 text/html Ear problem UCReported bypatient.source of patient informationInformation obtained from patient; Patient arrived at Urgent Care ambulatory Location:left Quality:pain;decreased hearing;swelling Severity:severe Duration:started ; 3 days Context:no sick contacts; no recent air travel;history of ear aches/ear infections Modifying Factors:does not hurt to chew; tymphanostomy tubes Associated Symptoms:discharge from the ears;tender to touch Ale Ramirez NP [address] [place], [address], [place] - [facility] 02/01/2023 18:51:58 3 text/html Sore throatReported bypatient.Source of patient informationInformation obtained from patient; Patient arrived at Urgent Care ambulatory Location:throat Severity:moderate Quality:hurts to swallow Onset/Timin days Associated Symptoms:no cough; no sputum production; no shortness of breath; no wheezing; no vomiting; no nausea; No hoarseness;congestion;sinus pain/ congestion Context:no foreign travel; non-smoker;sick contact Modifying Factors:no treatment Presents with throat started to hurt yesterday and she has had sinus pressure and mucus for 2 days now. Pt states her throat is hurting but when she gargled with salt water it seemed to reduce the swelling in her throat. Pt did a covid test on monday and it was neg. pt wants to test for flu and strep today Ale Ramirez NP [address] [place], [address], [place] - [facility] 04/19/2023 10:42:44 4 text/html 33 y/o female here with 5 days of cough, congestion, sore throat, body aches initially LEANNA Holguin [address] [place], [address], [place] - [facility] 04/15/2024 12:54:01 OBGyn Episode No OBEpisode recorded.
[2024-08-16 17:55] LABS: Alanine Aminotransferase 26 U/L (0-31); Albumin Level 4.5 g/dL (3.5-5.0); Alkaline Phosphatase 85 U/L (39-117); Anion Gap 13 (12-20); Aspartate Amino Transferase 22 U/L (5-31); Bilirubin Total 0.5 mg/dL (0.0-1.0); Blood Urea Nitrogen 7 mg/dL (9-16); Calcium 9.8 mg/dL (8.4-10.2); Carbon Dioxide 22 mmol/L (22-29); Chloride 109 mmol/L (96-108); Cholesterol 199 mg/dL (<200); Estimated Glomerular Filt Rate > 60; Glucose Fasting 90 mg/dL (60-99); HDL Cholesterol 40 mg/dL (>40); Iron 78 mcg/dL (30-160); LDL Cholesterol Calculated 132 mg/dL (<100); Percent Iron Saturation 24 % (15-50); Potassium 3.9 mmol/L (3.3-5.1); Sodium 140 mmol/L (135-145); Total Iron Binding Capacity 321 mcg/dL (228-428); Total Protein 8.1 g/dL (6.5-8.0); Triglycerides 136 mg/dL (<150); Unsaturated Iron Binding 243 ug/dL; Vitamin D 25-OH Total 21.2 ng/mL (>30)
[2024-08-16 17:56] LABS: Folate 13.3 ng/mL (> or = 4.0); Vitamin B12 903 pg/mL (200-900)
== END 2024-08-16 15:11 | disposition home or self-care (01) ==
LOC: HO.HMGCLDS 15:10
PROVIDERS: PCP Internal Medicine; Visit Provider Internal Medicine
DX: R00.2 Palpitations (principal); E78.5 Hyperlipidemia, unspecified; E66.01 Morbid (severe) obesity due to excess calories; Z68.41 Body mass index [BMI] 40.0-44.9, adult
CPT/HCPCS: 36415; 80053; 80061; 82306; 82607; 82746; 83036; 83540; 83735; 85025

== ENCOUNTER 2024-12-23 09:05 | Outpatient (AMB) | payer OTHER, SELFPAY ==
--- OUTSIDE RECORDS SUMMARY | 2024-12-23 09:40 | XMS_ITS | Encounter Summary ---
Author Organization [facility] Address [address] [place] [address] Phone Care Team Providers Care Agronomy Teacher Name Role Phone Rafael Culver MD Primary Care Provider Harry Torres MD Unavailable [phone] Rafael Culver MD Unavailable [phone] Pcp, Unknown Primary Care Provider Unavailabl Elise Phipps MD Primary Care Provider Rafael Culver MD Unavailable [phone] Encounter Details Date Type Department Care Team (Latest Contact Info) Description 05/15/2018 Transcribe Orders [facility] Specimen Processing [address] [place] [address] Issac Loving CNM [address] [facility] [place] [address] [email or web address] care, subsequent , first trimester (Primary Dx) Social History Tobacco Use Types Packs/Day Years Used Date Smoking Tobacco: Every Day Cigarettes Smokeless Tobacco: Never Alcohol Use Standard Drinks/Week Comments Yes 0 (1 standard drink = 0.6 oz pur e alcohol) rare. 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 on file Not on file Not on f ile documented as of this encounter Plan of Treatment Not on file documented as of this encounter Results * Chlamydia Trachomatis and Neisseria Gonorrhoeae Nucleic Acid Detection (05/15/2018 11:34 AM EST) CHLAMYDIA TRACHOMATIS Not Detected Not Detected [facility] NEISERIA GONORRHOEAE Not Detected Not Detected [facility] SPECIMEN TYPE URINE [facility] Urine (Urine) 05/15/2018 11: 34 AM EST 05/15/2018 4:39 PM EST Issac COREYM NON CULTURE MICROBIOLO GY Final Result Performing Organization Address City/State/[facility] Co de Phone Number [facility] [address] [place] [address] documented in this encounter Visit Diagnoses Diagnosis care, subsequent , first trimester- Primary documented in this encounter Care Teams Agronomy Teacher Relationship Specialty Start Date End Date Rafael Culver MD [address] [place] [address], [address] [place] [id number] PCP - General 03/16/17 06/11/18 Pcp, Unknown PCP - General 06/12/18 08/08/18 Elise Loaiza MD [address] [place] [address] PCP - General Internal Medicine 08/09/18 Harry Torres MD [address] [place] [address], [address] [place] [address] Historical LMR Provider 03/18/17 06/05/21 Rafael Culver MD [address] [place] [address], [address] [place] [address] [email or web address] Historical LMR Provider 03/18/17 06/05/21 Rafael Culver MD [address] [place] [address], [address] [place] [address] [email or web address] Insurance Assigned Provider 11/02/19 01/02/20 documented as of this encounter Additional Source Comments The information contained in this document represents components of the legal health record. It is not the complete legal health record.[facility]
--- OUTSIDE RECORDS SUMMARY | 2024-12-23 09:40 | XMS_ITS | Data Portability ---
Author Organization [facility], [address] Address [address] [place] [address] Care Team Providers Care Coal Briquette Machine Operator Name Role Phone [facility] Primary Care Provider Assessment No assessment recorded. Plan of Treatment Reminders Order Date Submit Date Provider Last Modified By Organization Details Last Modified Time Details Appointments None recorded. Lab rapid flu (A+B) 2022 023 [facility]pperception [facility], [address] [place] [address], [phone], 3 10:08:57 rapid strep group A, throat 2022 023 djShopperception 20999_[facility], [address] [place] [address], [phone], 3 10:08:59 culture, respiratory 2022 023 [facility], [address] [place] [address], [address], 3 08:06:37 hepatitis B surface Ab, quantitativ e, serum 2022 023 [facility], [address] [place] [address], [address], 3 08:09:23 varicella zoster virus IgG Ab, QN, IA, serum 2022 023 [facility], [address] [place] [address], [address], 3 08:09:25 measles + mumps + rubella virus IgG panel, QN, serum or plasma 2022 023 [facility] [address] [place], [address], 3 08:09:20 Referral None recorded. Procedures None recorded. Surgeries None recorded. Imaging None recorded. Medication Orders benzonatate 200 mg capsule 2023 024 [facility]/Pharmacy #1095, [address] [place] [address], [address], 4 12:35:42 fluticasone propionate 50 mcg/actuati on nasal spray,suspe nsion 2023 024 [facility] [address] [place] [address], [address], 4 12:35:31 amoxicillin 400 mg-potassiu m clavulanate 57 mg/5 mL oral suspension 2022 023 [facility] [address] [place] [address], [address], 3 09:41:34 Tubersol 5 tub. unit/0.1 mL intradermal injection solution 2022 023 [facility] [address] [place] [address], [address], 3 18:36:02 nystatin 100,000 unit/mL oral suspension [address]/Pharmacy #0818, [address] [place] [address], [address], 3 18:35:51 pantoprazol e 40 mg tablet,shilpi yed release [address]/Pharmacy #0818, [address] [place] [address] [place], [address], 3 18:35:54 Patient TargetsNo targets recorded. Patient Instructions Encounter Date Encounter Id Patient Instructions Last Modified By Organization Details Last Modified Time 06/12/2022 [id number] What is acid reflux? Acid reflux is when the acid that is normally in your stomach backs up into the esophagus. The esophagus is the tube that carries food from your mouth to your stomach. When acid reflux causes bothersome symptoms or damage, doctors call it gastroesophageal reflux disease or GERD. What are the symptoms of acid reflux? The most common symptoms are: Heartburn, which is a burning feeling in the chest Regurgitation, which is when acid and undigested food flow back into your throat or mouth Other symptoms might include: Stomach or chest pain Trouble swallowing Having a raspy voice or a sore throat Unexplained cough Nausea or vomiting Is there anything I can do on my own to feel better? Yes. You might feel better if you: Lose weight (if you are overweight) Raise the head of your bed by 6 to 8 inches You can do this by putting blocks of wood or rubber under 2 legs of the bed or a foam wedge under the mattress. Avoid foods that make your symptoms worse For some people these include coffee, chocolate, alcohol, peppermint, and fatty foods. Stop smoking, if you smoke Avoid late meals Lying down with a full stomach can make reflux worse. Try to plan meals for at least 2 to 3 hours before bedtime. Avoid tight clothing Some people feel better if they wear [...] each do that in a different way. For mild symptoms, antacids can help, but they work only for a short time. Histamine blockers are stronger and last longer than antacids. You can buy antacids and most histamine blockers without a prescription. For frequent and more severe symptoms, proton [...] should see a doctor or nurse if: Your symptoms are severe or last a long time You cannot seem to control your symptoms You have had symptoms for many years You should also see a doctor or nurse right away if you: Have trouble swallowing, or feel as though food gets stuck on the way down Lose weight when you are not trying to Have chest pain Choke when you eat Vomit blood or have bowel movements that [...] the severity and pain of ulceration. [ Not available 06/12/2022 19:34:51 12/22/2022 [id number] This physical do es not replace the annual physical to be performed by your PCP. There may be additional screening tests that they will perform that we do not in the urgent care setting. Failure to follow up as recommended may result in significant adverse health consequences. If your symptoms worsen or you develop new symptoms that concern you, go to the emergency department for further evaluation. [email or web address] Not available 12/22/2022 12:54:19 02/01/2023 [id number] keeping ears dry : care instructions [email or web address] Not available 02/01/2023 18:46:31 perforated eardr um: care instructions [email or web address] Not available 02/01/2023 18:46:31 04/19/2023 [id number] middle ear fluid : care instructions Not available 04/19/2023 10:13:06 Acute Sinusitis: Care Instructions Not available 04/19/2023 10:08:56 sore throat: car e instructions [email or web address] Not available 04/19/2023 10:08:56 Based on your [...] 6. Severe Headache Thank you for using [facility] today, please feel free to contact our office if you have any questions or concerns. Not available 04/19/2023 10:13:04 04/15/2024 [id number] upper respirator y infection (cold): care instructions [email or web address] Not available 04/15/2024 12:35:28 Reason for Referral None Reported. Results Created Date Observation Date Name Description Value Unit Range Abnormal Flag Note LastModifiedBy Organization Detail LastModifiedTime 12/23/1912/23/2022 MEASL ES/MU MPS/R UBELL A IMMUN ITY rubella antibodies, IgG 2.86 index immune >0.99 Non-i mmune <0.90 Equiv ocal 0.90 - 0.99 Immun e >0.99 Not Available [facility] ([facility]) [address] [facility], [place], [address], 12/23/2022 08:09:20 12/23/19 23 12/23/2022 MEASL ES/MU MPS/R UBELL A IMMUN ITY measles antibodies, IgG 85.7 AU/mL immune >16.4 Negat vini <13.5 Equiv ocal 13.5 - 16.4 Posit vini >16.4 Prese nce of antib odies to Rubeo la is presu mptiv e evide nce of immun ity excep t when acute infec tion is suspe cted. Not Available [facility] ([facility]) [address] [facility], [place], [address], 12/23/2022 08:09:20 12/23/1912/23/2022 MEASL ES/MU MPS/R UBELL A IMMUN ITY mumps abs, IgG 44.4 AU/mL immune >10.9 Negat vini <9.0 Equiv ocal 9.0 - 10.9 Posit vini >10.9 A posit vini resul t gener ally indic ates past expos ure to Mumps virus or previ ous vacci natio n. Not Available [facility] ([facility]) [address] [facility], [place], [address], 12/23/2022 08:09:20 12/23/19 23 12/23/2022 HEPAT ITIS B SURF AB QUANT hepatitis B surf Ab quant >1000. 0 mIU/m L immuni ty>9.9 Statu s of Immun ity Anti- HBs Level ----- ----- ----- --- ----- ----- ---- Incon siste nt with Immun ity 0.0 - 9.9 Consi stent with Immun ity >9.9 Not Available [facility] ([facility]) [address] [facility], [place], [address], 12/23/2022 08:09:22 12/23/19 23 12/23/2022 VARIC HADLEY- ZOSTE R V AB, IGG [...] stage of disea se. Not Available [facility] ([facility]) [address] [facility], [place], [address], 12/23/2022 08:09:25 04/19/20 23 04/23/2023 UPPER RESPI RATOR Y CULTU RE upper respiratory culture FINAL REPORT Not Available [facility] ([facility]) [address] [facility], [place], [address], 04/23/2023 08:06:37 04/19/20 23 04/23/2023 UPPER RESPI RATOR Y CULTU RE result 1 COMMEN T Routi ne respi rator y des Not Available [facility] ([facility]) [address] [facility], [place], [address], 04/23/2023 08:06:37 04/19/20 23 04/19/2023 rapid strep group A, throa t Unknown Analyte negati ve Not Available [address] [place] [address], [address], 04/19/2023 09:55:37 04/19/20 23 04/19/2023 rapid strep group A, throa t Unknown Analyte yes Not Available [address] [place] [address], [address], 04/19/2023 09:55:37 04/19/20 23 04/19/2023 rapid flu (A+B) Unknown Analyte negati ve Not Available [address] [place] [address], [address], 04/19/2023 09:55:20 04/19/20 23 04/19/2023 rapid flu (A+B) Unknown Analyte negati ve Not Available [address] [place], [place] [address], [address], 04/19/2023 09:55:20 04/19/20 23 04/19/2023 rapid flu (A+B) Unknown Analyte yes Not Available [address] [place], [place] [address], [address], 04/19/2023 09:55:20 Result Notes None recorded. Problems Name Problem SNOMED Code Status Onset Date Resolution Date Notes Provider Name and Address Organization Details Recorded Time Anxiety 60488882 Active 023 BENJAMIN mccallum, PA - [facility] 3 19:03:37 Diabetes mellitus 44535229 Active 023 BENJAMIN mccallum, PA - [facility] 3 19:03:41 Problem Notes None recorded. Procedures Surgical History Date Name Laterality Status Provider Name and Address Organization Details Recorded Time 12/23/19 23 OC-UDS Send Out Template NON DOT completed Bekah [place] PA - [facility] 12/22/2022 13:14:25 12/23/19 23 OC - Venipuncture Template completed Bekah [place] PA - [facility] 12/22/2022 13:14:48 12/23/19 OC- Physical completed Bekah [place] PA - [facility] 12/22/2022 13:49:31 Imaging [...] propionate 50 mcg/actuati on nasal spray,suspe nsion [facility] 2 sprays every day by intranasa l [...] completed Not Available Not Available Not Available Depo-Ell Teacher a active Not Available Not Available Not [...] in Arterial blood by Pulse oximetry Systolic And Diastolic Provider Name and Address Organization Details Last Updated DateTime 3 154.94 cm 46.1 kg/m2 965791. 54 g 0 77 /min 19 /min 98.6 [degF] 99 % 99 % 130/77 mm[Hg] BENJAMIN FRANCES PA - [facility] 3 19:09:14 Date Recorded Body height Body mass index (BMI) Body weight Respiratory rate Body temperature Oxygen saturation Oxygen saturation in Arterial blood by Pulse oximetry Heart rate Systolic And Diastolic Provider Name and Address Organization Details Last Updated DateTime 3 154.94 cm 46.1 kg/m2 156088. 54 g 18 /min 97.5 [degF] 99 % 99 % 88 /min 122/85 mm[Hg] BORIS BLOUNT PA - [facility] 3 18:37:59 Date Recorded Body height Body mass index (BMI) Body weight Oxygen saturation Oxygen saturation in Arterial blood by Pulse oximetry Pain severity - 0-10 verbal numeric rating [Score] - Reported Heart rate Respiratory rate Body temperature Systolic And Diastolic Provider Name and Address Organization Details Last Updated DateTime 4 154.94 cm 35.5 kg/m2 50184.3 7 g 99 % 99 % 0 94 /min 18 /min 98.7 [degF] 118/85 mm[Hg] Shanelle Duggan PA - [facility] 4 12:19:09 Date Recorded Body height Body mass index (BMI) Body weight Pain severity - 0-10 verbal numeric rating [Score] - Reported Body temperature Respiratory rate Heart rate Oxygen saturation Oxygen saturation in Arterial blood by Pulse oximetry Systolic And Diastolic Provider Name and Address Organization Details Last Updated DateTime 3 154.94 cm 35.5 kg/m2 69549.3 7 g 0 98.6 [degF] 18 /min 82 /min 99 % 99 % 137/84 mm[Hg] Noemi Haas PA - [facility] 3 09:42:42 Social History Question Answer Notes LastModified by Organizat ion Details LastModified Time Tobacco Smoking Status Former Smoker BENJAMIN mccallum PA - [facility] 06/12/2022 19:05:48 Have You Had A Flu Shot This Season? No Information not available 04/15/2024 If No, Would You Like A Flu Shot Today? No Information not available 04/15/2024 Have You Recently Traveled Abroad? No Information not available 06/12/2022 Are You Currently In School? No Information not available 06/12/2022 Sex: Unknown Functional Status Question Answer Note LastModified by Organizat ion Details LastModified Time Do you use any illicit or recreational drugs? No Information not available 06/12/2022 What is your level of alcohol consumption? None Information not available 06/12/2022 Are you currently employed? Yes Information not available 06/12/2022 Mental Status None recorded. Family History Relationship [...] SNOMED-CT Code Diagnosis ICD10 Code Diagnosis Note [id number] [facility] [facility] [address] [place] [address] 12/14/2017 10:33:32 12/14/2017 11:18:01 [id number] [address] [place] [address] 04/08/2022 16:55:42 04/08/2022 17:23:39 [id number] [address] [place] [address] 03/02/2020 11:28:49 03/02/2020 16:18:16 [id number] [address] [place] [address] 02/24/2018 10:15:48 02/24/2018 11:35:54 [id number] [address] [place] [address] 03/20/2020 15:25:04 03/20/2020 16:37:37 [id number] [address] [place] [address] 03/29/2020 13:27:01 03/29/2020 14:00:55 [id number] [address] [place] [address] 06/23/2020 16:25:42 06/23/2020 17:56:33 [id number] [address] [place] [address] 07/14/2018 16:16:11 07/14/2018 17:01:30 [id number] [address] [place] [address] 06/07/2019 18:00:35 06/07/2019 18:29:50 [id number] [address] [place] [address] 01/25/2022 11:37:37 01/25/2022 13:19:47 [id number] [place] [address] [place] [address] 06/12/2022 18:43:19 06/12/2022 19:36:58 Aphthous ulcer of mouth 328268372 K12.0 Gastro-eso phageal reflux disease with esophagitis 534490339 K21.00 [id number] [place] [address] [place] [address] 12/22/2022 12:16:45 12/22/2022 14:09:45 Tuberculosis screening 648579908 Z11.1 History an d physical examination, pre-employment 906388816 Z02.1 History an d physical examination, occupation 620166862 Z02.1 [id number] [place] [address] [facility] [place] [address] 02/01/2023 17:59:53 02/01/2023 18:58:20 Acute left otitis media 461638678 H66.92 Based on your Presentati on, Exam, [...] . Severe Headache Thank you for using [facility] today, please feel free to contact our office if you have any questions or concerns. [id number] [place] [address] [place] [address] 04/19/2023 09:31:52 04/19/2023 10:10:48 Upper respiratory infection 03068499 J06.9 Infection by bacteria or a virus [...] sero us otitis media of bilateral ears 5562037529 305702 H65.03 luid often builds up inside the [...] cases, you can treat yourself at home. [id number] LEANNA Holguin [address] [facility] [address] [place] [address] 04/15/2024 12:11:42 04/15/2024 12:36:35 Upper respiratory infection 25219193 J06.9 Patient presented with symptoms of upper [...] pain or worsening. Thank you for using [facility] today, please feel free to contact our office if you have any questions or concerns. Health Concerns Section Related Observation LastModified by Organization Detai ls LastModified Time None Recorded Concern Status LastModified by Organization Details LastModified Time None Recorded Advance Directives Directive None Recorded Payers Insurance Date Sequence Insurance Name Policy Number Policy Deluna Covered Member ID Deluna Member ID Guarantor Name 04/19/2023 OC-ESCREEN Jade Valles [id number] Jade Valles 04/15/2024 1 [facility] - HEALTH NET PLAN (MEDICAID HMO) [place] Jade Valles [id number] Jade Valles OBGyn Episode No OBEpisode recorded.
--- OUTSIDE RECORDS SUMMARY | 2024-12-23 09:40 | XMS_ITS | Encounter Summary ---
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
[2024-12-23 09:42] VITALS: BP 132/74; PULSE 76; TEMP 36.9; O2SAT 95; BMI 40.5
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
== END 2024-12-23 10:06 | disposition home or self-care (01) ==
PROVIDERS: PCP Internal Medicine; Visit Provider Nurse Practitioner Family
DX: M72.2 Plantar fascial fibromatosis (principal)

== ENCOUNTER 2024-12-23 09:05 | Outpatient (REF) | payer OTHER, SELFPAY ==
[2024-12-23 13:32] LABS: Hemoglobin A1C 145.8727 umol/L; Total Hemoglobin (HGBA1C) 3415.7934 umol/L
[2024-12-23 13:48] LABS: Alanine Aminotransferase 20 U/L (0-31); Albumin Level 4.5 g/dL (3.5-5.0); Alkaline Phosphatase 68 U/L (39-117); Anion Gap 10 (12-20); Aspartate Amino Transferase 22 U/L (5-31); Blood Urea Nitrogen 10 mg/dL (9-16); Calcium 9.1 mg/dL (8.4-10.2); Carbon Dioxide 23 mmol/L (22-29); Chloride 110 mmol/L (96-108); Cholesterol 164 mg/dL (<200); Estimated Glomerular Filt Rate > 60; HDL Cholesterol 33 mg/dL (>40); Potassium 4.1 mmol/L (3.3-5.1); Sodium 139 mmol/L (135-145); Total Protein 7.3 g/dL (6.5-8.0); Triglycerides 107 mg/dL (<150)
== END 2024-12-23 09:06 | disposition home or self-care (01) ==
LOC: HO.HMGCLDS 09:05
PROVIDERS: PCP Internal Medicine; Referring Provider Internal Medicine; Visit Provider Nurse Practitioner Family
DX: M72.2 Plantar fascial fibromatosis (principal); E66.01 Morbid (severe) obesity due to excess calories; E78.5 Hyperlipidemia, unspecified; R73.9 Hyperglycemia, unspecified; Z68.41 Body mass index [BMI] 40.0-44.9, adult
CPT/HCPCS: 36415; 80053; 80061; 82306; 83036; 99212

== ENCOUNTER 2025-02-07 11:54 | Outpatient (AMB) | payer OTHER, SELFPAY ==
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
[2025-02-07 12:07] VITALS: BP 126/82; PULSE 75; TEMP 36.9; O2SAT 99; BMI 40.6
--- OUTSIDE RECORDS SUMMARY | 2025-02-07 14:24 | XMS_ITS | Clinical Summary ---
Author Organization [facility] Address [address] [place] [address] Care Team Providers Care Mechanical Striper Name Role Phone Linsey Mullins PA-C Primary Care Provider [phone] Source Comments PLEASE NOTE, if this patient [...] 86 10/08/2015 10:29 AM EDT Temperature 37 C (98.6 F) 10/08/2015 10:29 AM EDT Respiratory Rate 16 [...] [address] Insurance [place] MEDICAID Care Teams Mechanical Striper Relationship Specialty Start Date End Date Linsey Mullins PA-C [address] [place] [address] PCP - General 07/24/18
--- OUTSIDE RECORDS SUMMARY | 2025-02-07 14:24 | XMS_ITS | Encounter Summary ---
Author Organization [facility] Address [address] [place] [address] Care Team Providers Care Graphic Engineer Name Role Phone Linsey Mullins PA-C Primary Care Provider [phone] Reason for Visit * Reason Comments Correspondence care plan - individu al counseling Encounter Details Date Type Department Care Team ([facility] Contact Info) Description 10/23/2015 Interim Notes [facility] [address] [place] [phone] Use, Do Not, G[employer] [address] [place] [address] Social History Tobacco Use Types Packs/Day Years [...] on filedocumented in this encounter Care Teams Graphic Engineer Relationship Specialty Start Date End Date Linsey Mullins PA-C [facility] [place] [address] PCP - General 07/24/18 documented as of this encounter
== END 2025-02-07 13:03 | disposition home or self-care (01) ==
LOC: HO.HMCC 11:55
PROVIDERS: PCP Internal Medicine; Visit Provider Internal Medicine
DX: Z00.00 Encounter for general adult medical examination without abnormal findings (principal); M54.50 Low back pain, unspecified; Z68.41 Body mass index [BMI] 40.0-44.9, adult; E66.9 Obesity, unspecified; R10.9 Unspecified abdominal pain; M72.2 Plantar fascial fibromatosis; R73.9 Hyperglycemia, unspecified; H91.90 Unspecified hearing loss, unspecified ear

== ENCOUNTER → 2025-02-07 11:54 | Outpatient (BNVA) | payer OTHER, SELFPAY | PROVIDERS: PCP Internal Medicine; Visit Provider Internal Medicine | DX: Z00.00 Encounter for general adult medical examination without abnormal findings (principal); M54.50 Low back pain, unspecified; H91.90 Unspecified hearing loss, unspecified ear; M72.2 Plantar fascial fibromatosis; E66.9 Obesity, unspecified; R73.9 Hyperglycemia, unspecified; R10.9 Unspecified abdominal pain; Z68.41 Body mass index [BMI] 40.0-44.9, adult | CPT/HCPCS: 96127; 99395 ==

== ENCOUNTER 2025-02-07 13:10 | Outpatient (REF) | payer OTHER, SELFPAY ==
--- NOTE | ~2025-02-07 | US_ITS ---
EXAMINATION: US KIDNEY BILATERAL HISTORY: R10.9 - Unspecified abdominal pain TECHNIQUE: Real-time grayscale ultrasound imaging of the kidneys was performed and images were reviewed. COMPARISON: Comparison is made with the prior examination dated 11/07/2023. FINDINGS: Right kidney: The right kidney measures 12.7 x 5.4 x 5.6 cm. Renal parenchymal echotexture and thickness are normal. There are no masses. There is no hydronephrosis or renal calculi. Left Kidney: The left kidney measures 11.8 x 4.8 x 4.6 cm. Renal parenchymal echotexture and thickness are normal. There are no masses. There is no hydronephrosis or renal calculi. US/US renal BI IMPRESSION: Unremarkable renal ultrasound. Electronically signed by: Xavi Norton MD 02/07/2025 01:37 PM EDT
== END 2025-02-07 13:11 | disposition home or self-care (01) ==
LOC: HO.HMGCX 13:10
PROVIDERS: PCP Internal Medicine; Visit Provider Internal Medicine
DX: R10.9 Unspecified abdominal pain (principal)
CPT/HCPCS: 76775

== ENCOUNTER → 2025-02-07 13:16 | Outpatient (BNV) | payer OTHER, SELFPAY | PROVIDERS: PCP Internal Medicine; Visit Provider Radiology Diagnostic Radiology | DX: R10.9 Unspecified abdominal pain (principal) | CPT/HCPCS: 76775 ==

== ENCOUNTER 2025-02-20 19:05 | Emergency (ER) | payer OTHER, SELFPAY ==
--- NOTE | ~2025-02-20 | CT_ITS ---
CLINICAL HISTORY: right sided flank pain with hematuria CT abdomen and pelvis without contrast Comparison: None provided Findings: LIMITED CHEST: Lung bases are clear. LIVER: No focal liver lesion. BILIARY: No gallbladder wall thickening, radiopaque stone, or ductal dilatation. PANCREAS: No mass or ductal dilatation. SPLEEN: No splenomegaly. KIDNEYS: Bilateral subcentimeter nephrolithiasis measuring 2-3 mm. There is a 3 mm right ureterovesicular junction stone with minimal right hydronephrosis. No left hydronephrosis. ADRENALS: No nodule. VASCULAR: No aneurysm. RETROPERITONEUM: No lymphadenopathy or mass. BOWEL/MESENTERY: No evidence of obstruction. No free fluid or air. Normal appendix. ABDOMINAL WALL: No mass or significant abnormality. URINARY BLADDER: No focal wall thickening. PELVIC NODES: No pelvic lymphadenopathy. PELVIC ORGANS: Normal for age. BONES: No acute fracture. OTHER: Negative. IMPRESSION: Right ureterovesicular junction stone measuring 3 mm with minimal right hydronephrosis. Additional bilateral subcentimeter nephrolithiasis also present. This document has been electronically signed by: Jyothi Tyler MD on 02/21/2025 00:11:09
[2025-02-20 19:27] VITALS: BP 148/91; PULSE 107; RESP 16; TEMP 36.8; O2SAT 99; BMI 41.0
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
[2025-02-20 20:14] LABS: MANUAL DIFF FLAG NO
[2025-02-20 20:17] LABS: Hematocrit 37.7 % (37.0-47.0); Hemoglobin 12.5 g/dl (12.0-16.0); Imm Gran Abs Auto 0.05 X10*3/uL (0.00-0.03); Imm Gran Pct Auto 0.4 % (0.0-0.4); Lymphocytes Absolute Auto 2.8 X10*3/uL (1.2-4.9); Mean Corpuscular HGB Conc 33.2 g/dl (31.0-35.0); Mean Corpuscular Hemoglobin 28.9 pg (27.0-33.0); Mean Corpuscular Volume 87.1 fL (80.0-98.0); NRBC Abs Auto 0.000 X10*3/uL (0.0-0.012); NRBC Pct Auto 0.0 /100WBC (0.0-0.2); Platelet Count 286 X10*3/uL (160-400); Red Blood Count 4.33 X10*6/uL (4.20-5.50); White Blood Count 11.6 X10*3/uL (4.8-10.8)
[2025-02-20 20:17] LABS: Appearance Urine Clear; Glucose Urine UA 500 mg/dL (Negative); PH 6.5 (5.0-9.0); Specific Gravity - Urine 1.015 (1.005-1.025); UMIC TRIGGER UACC YES
[2025-02-20 20:29] LABS: Alanine Aminotransferase 24 U/L (0-31); Albumin Level 4.4 g/dL (3.5-5.0); Alkaline Phosphatase 73 U/L (39-117); Anion Gap 8 (12-20); Aspartate Amino Transferase 19 U/L (5-31); Blood Urea Nitrogen 9 mg/dL (9-16); Calcium 9.7 mg/dL (8.4-10.2); Carbon Dioxide 26 mmol/L (22-29); Chloride 110 mmol/L (96-108); Creatinine Clr Calc Pharmacy 112.0; Estimated Glomerular Filt Rate > 60; Lipase 31 U/L (8-78); Magnesium 1.9 mg/dL (1.6-2.6); Potassium 3.9 mmol/L (3.3-5.1); Sodium 140 mmol/L (135-145); Total Protein 6.9 g/dL (6.5-8.0)
--- OUTSIDE RECORDS SUMMARY | 2025-02-20 21:02 | XMS_ITS | Encounter Summary ---
Author Organization [facility] Address [address] [place] [address] Phone Care Team Providers Care Marine Engineer Name Role Phone Rafael Culver MD Primary Care Provider Harry Torres MD Unavailable [phone] Rafael Culver MD Unavailable [phone] Rafael Culver MD Unavailable [phone] Pcp, Unknown Primary Care Provider Unavailabl e Elise Loaiza MD Primary Care Provider Rafael Culver MD Unavailable [phone] Encounter Details Date Type Department Care Team (Late st Contact Info) Description 08/01/2017 Ancillary Orders Virtual Department [address] [place] [address] oRs Gutierrez MD, PhD [address] [place], [place] [id number] [email or web address] Pelvic pain Social History Tobacco Use Types Packs/Day Years Used Date Smoking Tobacco: Every Day Cigarettes Smokeless Tobacco: Never Alcohol Use Standard Drinks/Week Comments Yes 0 (1 standard drink = 0.6 oz pur e alcohol) rare Comments Unknown Sex and Gender Information Value Date Recorded Sex Assigned at Female 12/11/2018 11:15 AM EDT Legal Sex Female 9:01 PM EDT Gender Identity Female 12/06/2019 3:31 AM EDT Sexual Orientation Straight 12/11/2018 11 :15 AM EDT documented as of this encounter Plan of Treatment Not on file documented as of this encounter Visit Diagnoses Diagnosis Pelvic pain documented in this encounter Care Teams Marine Engineer Relationship Specialty Start Date End Date Rafael Culver MD [address] [place] [address], [address] [place] [id number] PCP - General 03/16/17 06/11/18 Pcp, Unknown PCP - General 06/12/18 08/08/18 Elise Loaiza MD [address] [place] [address] PCP - General Internal Medicine 08/09/18 Harry Torres MD [address] [place] [id number] Historical LMR Provider 03/18/17 06/05/21 Rafael Culver MD [address] [place] [address], [address] [address] Historical LMR Provider 03/18/17 06/05/21 Rafael Culver MD [address] [place] [address], [address] [address] Insurance Assigned Provider 07/22/17 09/30/17 Rafael Culver MD [address] [place] [id number] [email or web address] Insurance Assigned Provider 11/02/19 01/02/20 documented as of this encounter Additional Source Comments The information contained in this document represents components of the legal health record. It is not the complete legal health record.[facility]
--- OUTSIDE RECORDS SUMMARY | 2025-02-20 21:02 | XMS_ITS | Encounter Summary ---
Author Organization [facility] Address [address] [place] [address] Care Team Providers Care Beverage Host Name Role Phone Linsey Mullins PA-C Primary Care Provider [phone] Reason for Visit * Reason Comments Correspondence care plan - individu al counseling Encounter Details Date Type Department Care Team ([facility] Contact Info) Description 10/23/2015 Interim Notes [facility] [address] [place] [phone] Use, Do Not, TRANSMISSION TESTER [address] [place] [address] Social History Tobacco Use Types Packs/Day Years [...] on filedocumented in this encounter Care Teams Beverage Host Relationship Specialty Start Date End Date Linsey Mullins PA-C [facility] [place] [address] PCP - General 07/24/18 documented as of this encounter
--- OUTSIDE RECORDS SUMMARY | 2025-02-20 21:02 | XMS_ITS | Encounter Summary ---
Author Organization [facility] Address [address] [place] [address] Phone Care Team Providers Care Colorman Name Role Phone Rafael Culver MD Primary Care Provider [phone] Harry Torres MD Unavailable [phone] Rafael Culver MD Unavailable [phone] Pcp, Unknown Primary Care Provider Unavailabl Elise Phipps MD Primary Care Provider Rafael Culver MD Unavailable [phone] Encounter Details Date Type Department Care Team (Latest Contact Info) Description 05/15/2018 Transcribe Orders [facility] Specimen Processing [address] [place] [address] Issac Loving CNM [address] [facility] [place] [address] [email or web address] care, subsequent , first trimester (Primary Dx) [...] EST) CHLAMYDIA TRACHOMATIS Not Detected Not Detected [facility] NEISERIA GONORRHOEAE Not Detected Not Detected [facility] SPECIMEN TYPE URINE [facility] Urine (Urine) 05/15/2018 11: 34 AM EST 05/15/2018 4:39 PM EST Issac COREYM NON CULTURE MICROBIOLO GY Final Result Performing Organization Address City/State/[facility] Co de Phone Number [facility] [address] [place] [address] documented in this encounter Visit Diagnoses Diagnosis care, subsequent , first trimester- Primary documented in this encounter Care Teams Colorman Relationship Specialty Start Date End Date Rafael Culver MD [address] [place] [address], [address] [place] [id number] PCP - General 03/16/17 06/11/18 Pcp, Unknown PCP - General 06/12/18 08/08/18 Elise Loaiza MD [address] [facility] [place] [address] PCP - General Internal Medicine 08/09/18 Harry Torres MD [address] [place] [address], [address] [place] [address] Historical LMR Provider 03/18/17 06/05/21 Rafael Culver MD [address] [place] [address], [address] [place] [address] [email or web address] Historical LMR Provider 03/18/17 06/05/21 Rafael Culver MD [address] [place] [address], [address] [place] [address] [email or web address] Insurance Assigned Provider 11/02/19 01/02/20 documented as of this encounter Additional Source Comments The information contained in this document represents components of the legal health record. It is not the complete legal health record.[facility]
--- OUTSIDE RECORDS SUMMARY | 2025-02-20 21:02 | XMS_ITS | Encounter Summary ---
Author Organization [facility] Address [address] [place] [address] Phone Care Team Providers Care Surgical Assistant Certified Name Role Phone Elise Loaiza MD Primary Care Provider [phone] Encounter Details Date Type Department Care Team (Late st Contact Info) Description 10/29/2023 Procedure Pass [facility] [place], [facility] Scan - [address] [id number] Social History Tobacco Use Types Packs/Day Years Used Date Smoking Tobacco: Former Cigarettes 0.3 7 0 06/28/2011 - 06/28/2018 Smokeless Tobacco: Never Comments:quit in first trime ster of current Alcohol Use Standard Drinks/Week Comments Never 0 (1 standard drink = 0.6 oz pur e alcohol) Education Answer Date Recorded Are you interested in more education? Not on juli e 09/23/2022 Are you concerned about learning? Not on file 09/23/2022 No 09/23/2022 No 09/23/2022 Digital Access Answer Date Recorded No 10/19/2022 No 10/19/2022 Reliable internet access at home? Not on file 10/19/2022 Device with a working camera? Not on file Intimate Partner Violence Answer Date R ecorded Are you denied basic needs s uch as food, clothing, or medical care? No 10/28/2023 In the past 12 months have y ou been in a relationship with a person who hurts, threatens, or tries to control you? No 10/28/2023 Are you denied basic needs s uch as food, clothing, or medical care? No 10/28/2023 In the past 12 months have y ou been in a relationship with a person who hurts, threatens, or tries to control you? No 10/28/2023 Comments No Sex and Gender Information Value [...] on filedocumented in this encounter Care Teams Surgical Assistant Certified Relationship Specialty Start Date End Date Elise Loaiza MD [facility] [place] [address] PCP - General Internal Medicine 08/09/18 documented as of this encounter Additional Source Comments The information contained in this document represents components of the legal health record. It is not the complete legal health record.[facility]
--- OUTSIDE RECORDS SUMMARY | 2025-02-20 21:02 | XMS_ITS | Clinical Summary ---
Author Organization [employer] [facility] Address [address] [place] [address] Phone Care Team Providers Care Supervisor [employer] Name Role Phone Elise Loaiza MD Primary Care Provider [phone] Allergies Active Allergy Reactions Criticality Noted Date Comments Clotrimazole Itching,Erythema Low 08/23/2023 Hydrocortisone Hives 08/23/2023 Mold 12/11/2018 Mold Extracts 12/11/2018 Other 09/22/2017 Pollens, trees , dogs Medications clindamycin (CLINDAGEL) 1 % gel Apply topically 2 (two) times a day. 30 g 4 Active Additional Information Patient not taking.Reported on 08/30/2024 tamsulosin (FLOMAX) 0.4 mg Cap Take 1 capsule (0.4 mg total) by mouth daily for 15 days. 15 capsule 4 Active FREESTYLE LITE Strp strips USE TO TEST BLOOD SUGAR ONCE A DAY 4 Active FREESTYLE 28 gauge lancets USE TO TEST BLOOD SUGAR ONCE A DAY 4 Active Active Problems Problem Noted Date Diagnosed Date Type 2 diabetes mellitus wit hout complication, without long-term current use of insulin 08/04/2020 Overview (08/04/2020): Diagnosis 07/2020 HgbA1c 6.8, random glucose 172, 2+ glucose in urine Essential hypertension 08/03/2020 Assessment & Plan (01/09/2023 12:38 PM EDT): Pt has lost 80 lbs. States she was never on medications to control bp. Pt reports she is now normotensive and If anything my bp is low. Pt really would like to stop Depo due to hair loss and would like to restart Junel. We discussed risks of blood clots, stroke while taking an OCP with dx of HTN. Pt demonstrates understanding and would like to start OCPs. Risks, benefits, warnings all reviewed with pt. Close follow up scheduled. Assessment & Plan (08/03/2020 3:23 PM EST): She reports a recent diagnosis of htn on meds; I review that it is not recommended for her to be on an estrogen BC with HTN. Family history of type II diabetes mellitus 12/2020 Overview (08/03/2020): mother Low grade squamous intraepit helial lesion on cytologic smear of cervix (LGSIL) 02/27/2020 Overview (08/03/2020): 01/2020 LGSIL Plan repeat PAP 1 year Genital herpes 04/23/2018 Overview (01/07/2019): Mar 2018 primary HSV 1 outbreak perianal and right vulva. Assessment & Plan (12/11/2018 9:59 AM EDT): Valtrex sent in. Assessment & Plan (11/21/2018 11:58 AM EDT): Will need to start Valtrex at 36 weeks. Assessment & Plan (10/10/2018 12:42 PM EDT): Plan on Valtrex at 36 weeks Class 3 severe obesity due t o excess calories with serious comorbidity in adult 06/11/2015 Resolved Problems Problem Noted Date Diagnosed Date Resolved Date Uterine scar from previous delivery 9 08/03/2020 Assessment & Plan (12/14/2018 5:33 PM EDT): Patient desires TOLAC. Risks of ECV reviewed in light of breech presentation noted on ultrasound. Risks include prom, placental abruption distress and possible need for emergent section. Advised patient we do the external cephalic version following 8 hours of n.p.o. under ultrasound guidance and are prepared for section if needed. The risk of uterine rupture is approximately 1% and possibly slightly higher 1.2 to 1.5% with induction of labor. Patient also counseled extensively yesterday by [facility]. According to [facility] consult note, after receiving counseling patient expressed a desire to transfer care to [facility] for delivery. [facility] did not contact our OB staff to let us know that they were planning to schedule her ECV the and possible section at 37 weeks. Patient states she would like to still consider her options but feels she would like to proceed with delivery at [facility], Following office visit, follow-up call to patient by Jeanette Antunez, see in a.m., reassured patient that [facility] blood bank is able to accommodate needs for PRBCs, ECV, Tolak and/or section. Patient stated at time of that call [facility] had contacted her this afternoon shortly after leaving the office. Patient plans to transfer her care to [facility]. Bjorn breech presentation 12/12/2018 Overview (12/14/2018): 12/12/18- Bjorn breech on US at [facility] consult Maternal atypical antibody c omplicating in third trimester, fetus 1 12/11/2018 Assessment & Plan (12/11/2018 9:59 AM EDT): Current antibody screen is now also positive for anti-c. Given two positive antibody screens, blood bank is recommending 24 hour notice for blood to be available. NST (non-stress test) nonreactive 12/11/2018 12/14/2018 Mild pre-eclampsia in third trimester 12/11/2018 12/14/2018 Decreased movements in third trimester 9 12/14/2018 Assessment & Plan (11/18/2018 4:09 PM EDT): Place on monitor for NST Discussed kick counts If reactive, will discharge home with follow up instructions Abdominal pain 10/20/2018 01/07/2019 Anemia affecting in third trimester 09/22/19 19 01/07/2019 Overview (10/29/2018): Hgb 10.4 at 24 weeks Rx for iron sent to the pharmacy Ferritin 26 (< 30 diagnostic) Assessment & Plan (11/15/2018 11:23 AM EDT): Most recent Hct 30.2 - 3 wks ago. Pt continues on iron suppl daily with OJ. Due to pt's weight, I have suggested Vit C tablet over OJ (calories) Chronic hypertension with cruz perimposed pre-eclampsia 06/12/2018 01/07/2019 Overview (12/14/2018): P:C ratio of 0.36 with 24 hour urine of 318. Remainder of labs normal. No symptoms. Normotensive on previously prescribed dose of labetalol started in September. Plan: MCA dopplers at [facility] on 12/13, repeat labs and appointment with provider on Thursday 12/14, admission for induction of labor on 12/16 at 37 weeks, Type and cross on admission which will take 24 hours to complete, no induction interventions overnight on Monday night while blood is being crossed, cervical barrera balloon during the day on Monday. 06/12/18 164/88 intake 08/23 142/76 meets criteria for HTN cHTN: Baseline HELLP labs normal, P/C ratio: WNL Begin baby ASA 12-14 wks: taking - Labetalol 200 mg TID started 10/16/18 Now with mild preeclampsia via 24 hour urine of 318, see mild preeclampsia problem for plan Assessment & Plan (12/14/2018 5:27 PM EDT): Blood pressure stable on current meds. 200 mg labetalol 3 times daily. Has repeat labs today. Delivery planned and has been scheduled at 37 weeks. Assessment & Plan (12/11/2018 9:58 AM EDT): Blood pressure is mildly elevated today. Labs from yesterday were normal except for urine protein creatinine ratio of 0.36. 24 hour urine handed in today. Will await results. She remains asymptomatic with no headaches, visual changes or RUQ pain. If 24 hour urine consistent with preeclampsia, will deliver at 37 weeks. Assessment & Plan (12/10/2018 5:18 AM EDT): Elevated BP reading at 36 wks CHTN vs Superimposed Preeclampsia P/C ratio mildly elevated at 0.36 HELLP labs normal Denies SANFORD, visual changes RUQ pain Recommend 24 hr urine collection for protein to confirm or deny proteinuria to differentiate PEC vs CHTN Reviewed with Dr Tsai - she agrees with this plan Follow up in the office or Mon for BP check/needs BPP Will need to make delivery plan once 24 hr urine results are in Pt instructed to call with SANFORD, visual changes, RUQ pain Assessment & Plan (12/07/2018 11:25 AM EDT): 12/07 BP 140/80, 144/68. HELLP labs ordered Denies s/s Counseled to call with s/s PIH Repeat BP check in 3 days Assessment & Plan (11/21/2018 11:57 AM EDT): Ultrasound shows an EFW of 2830 grams which is at the 89th percentile. The testing is normal. She notes that her with her vaginal delivery, she pushed about 20 minutes of a 7lb 3oz baby. She is still planning on TOLAC but will follow weight and may consider repeat if the baby is very macrosomic. Assessment & Plan (11/15/2018 11:39 AM EDT): BP remains stable on 200 mg of labetalol 3 times daily. Patient states blood pressures have remained normal at home as well. Denies any SANFORD, abd pain. Notes good FM although states since last visit she had a day of decreased mvmt and did not call. States she has a doppler at home and listened with that. Pt advised to call office with any concerns re: FM. BPP 01/03 on 11/07/18. BPP and growth ultrasound scheduled for next week. S/Sx PEC reviewed. Assessment & Plan (10/10/2018 12:38 PM EDT): Her SBP today is 160. She has been running blood pressures in the 140-150/80's. She had normal labs 5 days ago and she has no symptoms of PEC. This is most likely a worsening of her chronic hypertension. However, I think that evaluation at the CBC is reasonable for repeat labs and blood pressure. CBC informed that patient is coming. She may need to be started on medications for the high blood pressure. 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 Homozygous or heterozygous - 07/28: message to Yeyo Munguia to send to [facility] - 08/01: as per blood bank: ordered on FOB - misc test, antigen test, Test for E and e antigens . He will go 08/02 05/25 requested MFM consult (scheduled for 07/23/18) Titers < 1:16 q 2-4 wks > 1:16 consult for increased surveillance 07/20/18: antibody positive- too weak to titer 08/09/18 repeat abs ordered. FOB asked to go to lab for more testing (need to know if he is heterozygous or homozygous) 08/20/[address] Castrejon re FOB's lab results: he said it doesn't matter whether FOB is hetero- or homozygous since pt has antibody already. He didn't recommend any add'l f/u with FOB. Continue to follow pt with titers and usual protocol for assessing hemolytic disease 09/18 Titer 1:2 09/24 Titer 1:8 09/30 Titer 1:4 10/10 Titer 1:8 10/16 titer1:4 11/01 titer 1:4 11/21 1:4 12/10 Titier climbed to 1:16 (also there is a new antibody (c)), Dr Bose said there is a possibility that the increased titer is related to the development of this new antibody C/W Dr Thorne - need MFM consult NATALIA, ? Need for MCA dopplers. Also will need recommendation for if TOLAC is ok in setting of taking longer to get blood Assessment & Plan (12/14/2018 5:25 PM EDT): MFM consult at [facility] yesterday regarding titers. The most recent titer was 1: 16 which is not a critical value and low concern for anemia at this point. Recommendation is to have 4 units of PRBCs typed and crossmatched and available during patient's admission. They are recommending transfer of care to [facility] if our blood bank is unable to accommodate this. I have reassured patient that our blood bank has been in close communication with our OB team and has stated they are able to accommodate this. Assessment & Plan (12/11/2018 10:00 AM EDT): Titers now 1:16. Awaiting MFM consult and MCA dopplers from [facility]. Will contact [facility] today to see if they can see her this week. Assessment & Plan (12/09/2018 12:07 PM EDT): Repeat ABS ordered Assessment & Plan (11/21/2018 12:00 PM EDT): Plan to check titers today. Assessment & Plan (11/15/2018 11:42 AM EDT): Plan repeat titer next week. Assessment & Plan (10/19/2018 2:06 PM EDT): Repeat titer in 2 wks Assessment & Plan (10/10/2018 12:40 PM EDT): Last anti-E titer was 1:4 on most recent lab work. It had increased to 1:8. Per MFM, weekly titers should be done with MCA's weekly if the titers reach 1:16. Supervision of high risk pre gnancy in third trimester 05/15/2018 01/07/2019 Overview (12/14/2018): High risk d/t antibody E isoimmunization, chronic hypertension and TOLAC ( in G1) Due to HTN will need induction by 39 wks, plan discussed. Will need to be scheduled 12/10 Anti ETitier climbed to 1:16 (also there is a new antibody (c)), Dr Bose said there is a possibility that the increased titer is related to the development of this new antibody C/W Dr Thorne - need MFM consult NATALIA, ? Need for MCA dopplers. Also will need recommendation for if TOLAC is ok in setting of taking longer to get blood CNM Childbirth Ed? Group PN care? * Dates by LMP confirmed by first tri USN CG/chl neg/neg 05/15 Rh pos Tdap 11/15/18 Flu * Hgb 10.2 GTT 139 GBS neg PPBC Wants BTL if has repeat : need consent signed-- 11/15/18 pt desiring depoprovera. NT testing negative Chart reviewed GL Assessment & Plan (12/11/2018 11:17 AM EDT): She has noted somewhat decreased movement but NST was reactive today and BPP 8/8 last Monday. On the FHT, there were several subtle decels and a possible audible arrythmia. Will send to childbirth for prolonged monitoring. She denies any vaginal bleeding, LOF or regular contractions. Assessment & Plan (11/21/2018 11:52 AM EDT): She notes good movement. She denies any vaginal bleeding, LOF or regular contractions. Assessment & Plan (11/15/2018 11:41 AM EDT): tdap given today. Contraceptive options reviewed with patient today. She is leaning towards use of Depo-Provera. I did not bring up signing TL consent form in the event she has a repeat and desiring permanent sterilization at that time. Patient's health insurance requires a 30-day prior auth. History of delivery 05/15/2018 01/07/2019 Overview (11/22/2018): 11/24/18 US growth at 89%ile. In last Had low fluid FTP at 7cm Prefers TOLAC 08/09 - gave pt TOLAC consent to take home and review 09/24 - TOLAC consent signed Assessment & Plan (12/11/2018 10:00 AM EDT): She would still like to TOLAC. Assessment & Plan (12/09/2018 12:09 PM EDT): Will likely need IOL d/t CHTN guidelines, however we reviewed today that IOL can be limited by h/o C/S and that we will need to repeat a VE next week to determine what our options for IOL will be - should be induced between 37-39 wks Assessment & Plan (11/21/2018 11:57 AM EDT): Still plans on TOLAC. Assessment & Plan (10/10/2018 12:41 PM EDT): Still plans on TOLAC. Positive GAURAV (antinuclear antibody) 05/04/2018 01/07/2019 Overview (08/23/2018): Will consult to see affect on 08/24/2018: reviewed labs and notes from PCP w Dr. Turner, since pt has no ongoing symptoms and PCP not concerned no need for FU at this time. () Assessment & Plan (08/23/2018 4:54 PM EDT): 08/24/2018: reviewed labs and notes from PCP w Dr. Turner, since pt has no ongoing symptoms and PCP not concerned no need for FU at this time. () Tobacco abuse 05/04/2018 08/03/2020 Overview (05/04/2018): Overview: onset age 21- smoking 1 ppd /per day- ready to quit Vulvar lesion 04/18/2018 05/15/2018 Assessment & Plan (04/18/2018 9:06 AM EST): May be related to perineal lesion or small follicular abscess that drained. Screening examination for se xually transmitted disease 04/18/2018 05/15/2018 Pain of perianal area 04/17/20182017 Overview (04/23/2018): Mar 2018 +HSV 1 lesions. Assessment & Plan (04/18/2018 9:06 AM EST): Discussed with pt possible dx of HSV and that lesions do look suspicious. Will treat as primary infection until lab results are back. Safe sexual practices reviewed. May apply lidocaine jelly to affected area bid - tid. Dysmenorrhea 01/18/2018 05/15/2018 Assessment & Plan (01/18/2018 5:18 PM EDT): Patch will likely help dysmenorrhea. Patch use, side effects,warning signs reviewed. Urinary frequency 01/18/2018 05/15/2018 Assessment & Plan (01/18/2018 5:18 PM EDT): In office u/a negative, small urine sample, will send urine culture only. BV (bacterial vaginosis) 09/22/2017 Assessment & Plan (09/22/2017 11:42 AM EDT): Eliminate vulvar irritants, use metrogel x10 days (offered PO metronidazole but has trouble with large pills). Will start nuva ring for contraception and discussed may help reduce BV recurrence. Encounters Date Type Department Care Team Description 11/25/2024 10:27 AM EDT - 11/25/2024 11:59 PM EDT Hospital Encounter [facility] [address] [place] [address] Rosie Fernandez CNM Discharge Disposition: Home or Self Care from Last 3 Months Immunizations Immunization Administration Dates Next Due DTP 11/28/1995, 3,06/24/1991,04/01,01/29/1991 HPV,quadrivalent 05/15/2007,12/20/2006, 7 Hepatitis B 04/30/1995,11/28/1994,11/10/1994 Hib,HbOC 03/30/1992, 2,04/01/1991,01/29 INFLUENZA, SPLIT VIRUS, TRIV ALENT W/ PRESERVATIVE IM 04/09/2010,05/08/2003 Influenza Quadrivalent w/ Pr eservative IM 03/13/2019 Influenza, Unspecified Formulation 04/05/2019, MMR 12/20/2016,11/28/1995,03/30/1992 Meningococcal MCV4P 10/19/2006 PPD Test 10/01/2021 Polio - OPV 11/28/1995, 3,06/24/1991,04/01 Td (adult),2 Lf Tetanus Toxo id, PF, Adsorbed 06/13/2002,11/30/2000 Tdap 11/15/2018,01/27/2014,10/23/2007 Family History Medical History Relation Comments Arthritis Father Arthritis Maternal Grandfather Diabetes Maternal Grandfather Arthritis Maternal Grandmother Diabetes Maternal Grandmother Arthritis Mother Diabetes Mother No Known Problems Paternal Grandfather No Known Problems Paternal Grandmother Relation Status Comments Brother Alive Father Alive Maternal Grandfather Maternal Grandmother Mother Alive Paternal Grandfather Paternal Grandmother Sister 1 Alive Sister 2 Alive Social History Tobacco Use Types Packs/Day Years Used Date Smoking Tobacco: Former Cigarettes 0.3 7 0 06/28/2011 - 06/28/2018 Smokeless Tobacco: Never Tobacco Cessation:Counseling Given: Not Answered Comments:quit in first trimester of current Alcohol Use Standard Drinks/Week Comments [...] as food, clothing, or medical care? No 08/30/2024 In the past 12 months have y ou been in a relationship with a person who hurts, threatens, or tries to control you? No 08/30/2024 Are you denied basic needs s uch as food, clothing, or medical care? No 08/30/2024 In the past 12 months have y ou been in a relationship with a person who hurts, threatens, or tries to control you? 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 Not on file Not on f ile Last Filed Vital Signs Vital Sign Reading Time Taken Comments Blood Pressure 126/81 08/30/2024 8:56 PM EDT Pulse 78 08/30/2024 8:56 PM EDT Temperature 36.6 C (97.9 F) 08/30/2024 8:56 PM EDT Respiratory Rate 17 08/30/2024 8:56 PM EDT Oxygen Saturation 97% 08/30/2024 8:56 PM EDT Inhaled Oxygen Concentration - - Weight 95.9 kg (211 lb 8 oz) 08/30/2024 7:13 PM EDT Height 154.9 cm (5' 1 ) 08/30/2024 7:13 PM EDT Body Mass Index 39.96 08/30/2024 7:13 PM EDT Plan of Treatment Health Maintenance Due Date Last Done Comments DEPRESSION SCREENING 2002 PNEUMOCOCCAL VACCINES (0-49 years) (1 of 2 - PCV) 2009 LIPID PANEL 02/02/2019 02/02/2018 DIABETIC EYE EXAM 08/04/2020 URINE MICROALBUMIN/CREATININE RATIO 08/04/2020 HEMOGLOBIN A1C 02/03/2021 08/03/2020, 02/02/2018 BLOOD PRESSURE 07/24/2024 01/22/2024 PAP SMEAR 08/22/2024 08/23/2023, 12/0 01/2021, 01/30/2020, Additional history exists INFLUENZA VACCINE (#1) 2024 , 03/13/2019, 07/30/2014, Additional history exists COVID-19 VACCINE ( season) 2025 SMOKING STATUS SCREENING (Every 5 Years) 08/22/2028 08/23/2023 Adult Td,Tdap Booster 11/15/2028 11/15/2018 , 01/27/2014, 10/23/2007, Additional history exists HIB VACCINES Completed 03/30/1992, 05/30, 04/01/1991, Additional history exists MENINGOCOCCAL VACCINES (ACWY) Aged Out 10/19/2006 No longer eligible based on patient's age to complete this topic HEPATITIS C SCREENING Completed 08/30/2024 , 10/13/2023, 02/10/2022, Additional history exists HIV ONE-TIME SCREENING (18-65 YEARS) Completed 08/30/2024 HEPATITIS A VACCINES Aged Out No long er eligible based on patient's age to complete this topic MENINGOCOCCAL VACCINES (B) Aged Out N o longer eligible based on patient's age to complete this topic Medical Devices Not on file Procedures Procedure Name Priority Date/Time Associated Diagnosis Comments HCG (QUANTITATIVE, BLOOD) Routine 11/25/2024 10:47 AM EDT Amenorrhea HEPATITIS C ANTIBODY, QUALITATIVE STAT 08/30/2024 8:30 PM EDT PAP TEST Routine 08/23/2023 12:00 AM EDT HEMOGLOBIN A1C Routine 08/03/2020 3:40 PM EST Diabetes mellitus screening LIPID PANEL Routine 02/02/2018 1:45 PM EDT Malaise and fatigue from Last 3 Months or Most Recently Relevant to Health Maintenance Results * HCG (Quantitative, Blood) (11/25/2024 10:47 AM EDT) HCG BETA 0.2 mIU/mL [facility] Comment: Interpretation: FEMALE: Negative: Less than or equal to 1 mIU/mL. 4 Weeks Post Conception: 9.5 - 750 mIU/mL. 12 Weeks Post Conception: [id number] - [id number] mIU/mL. Test Methodology Kendall [id number] Patient results determined by assays using different manufacturers or methods may not be comparable. Blood 11/25/2024 10:4 7 AM EDT 11/25/2024 10:49 AM EDT Rosie Frenandez LEORA LAB BLOOD ORDERABLE S Final Result Performing Organization Address [facility]/ZIP Co de Phone Number [address] [address] * Hepatitis C antibody, qualitative (08/30/2024 8:30 PM EDT) HCV NON-REACTIV E NON-REACTI VE [facility] Blood 08/30/2024 8:30 PM EDT 08/30/2024 8:32 PM EDT Yvette Winston PA-C LAB BLOOD ORDERABLES Final Result Performing Organization Address City/[facility]/ZIP Co de Phone Number [address] [address] * Pap Test (08/23/2023 12:00 AM EDT) 08/23/2023 08/24/2023 9:4 1 AM EDT Narrative SEE NARRATIVE - 08/29/2023 11:40 AM EDT [address] [address] Supervisor Intelligence Analyst: Jade Rey MD PATCHING MACHINE OPERATOR Cytology Report FINAL DIAGNOSIS A. PAP SMEAR (SUREPATH) CE: SPECIMEN ADEQUACY: Satisfactory for evaluation; transformation zone present. INTERPRETATION: NEGATIVE FOR INTRAEPITHELIAL LESION OR MALIGNANCY. Electronically Signed Out By: HUNTER Hauser(ASCP) The Pap test is a screening test primarily for squamous cancers and precursors and has associated false-negative and false-positive results. New technologies such as liquid-based preparations may decrease but will not eliminate all false-negative results. Regular sampling and follow-up of unexplained clinical signs and symptoms are recommended to minimize false negative results. PROCEDURES/ADDENDA HPV Testing (Requested) Ordered Date: 08/24/2023 A. PAP SMEAR (SUREPATH) CE: Human Papilloma Virus Test NEGATIVE for high-risk Human Papilloma Virus types 16, 18, 45 and the Other high risk probe set (Includes 31, 33, 35, 39, 51, 52, 56, 58, 59, 66, 68) Note: Testing performed by [employer] Onclarity HR-HPV analysis. Clinical correlation is advised. This HPV test was performed at [facility], [address] [place] [address]. This test has been FDA approved for both SurePath and ThinPrep cervical cytology specimens. The accuracy and precision of this test for all other specimen sources has been verified in the Cytopathology Laboratory of the [facility] and has not been cleared or approved by the U.S. Food and Drug Administration. Clinical correlation is advised. CLINICAL HISTORY Date of Last Menstrual Period: Not Provided Menstrual History: Unknown Contraceptive History: Depo Other Clinical Conditions: Screening Pap SPECIMEN SOURCE A: PAP SMEAR (SUREPATH) CE Patient Name: JADE WREN : 1990 (Age: 32) Sex: F Institution: [facility] Location: [facility] Date of Collection: 08/23/2023 Date of Reported: 08/29/2023 11:40 Results to: Abdullahi Thorne MD, BS us Abdullahi Thorne MD CYTOLOGY ORDERABLES Final Res ult Performing Organization Address City/[facility]/ZIP Co de Phone Number SEE NARRATIVE * (ABNORMAL) Hemoglobin A1c (08/03/2020 3:40 PM EST) HEMOGLOBIN A1C 6.8(H) 4.3 - 5.8 % [facility] Blood 08/03/2020 3:40 PM EST 08/03/2020 3:43 PM EST us Aide Tsai MD LAB BLOOD ORDERABLES Final Result Performing Organization Address City/[facility]/ZIP Co de Phone Number [facility] [address] [place] [address] * (ABNORMAL) Lipid panel (02/02/2018 1:45 PM EDT) HDL 24 mg/dL [facility] Comment: Interpretation: Risk Level Females Decreased >55mg/dL Average 50-55 mg/dL Increased <50 mg/dL CHOLESTEROL 140 0 - 240 mg/dL [facility] TRIGLYCERIDES 159 30 - 160 mg/dL [facility] LDL 84 50 - 129 mg/dL [facility] Comment: LDL levels in terms of risk for coronary heart disease: <100 mg/dL: Optimal 100-129 mg/dL: Near or above optimal 130-159 mg/dL: Borderline high 160-189 mg/dL: High >190 mg/dL: Very High CARDIAC RISK RATIO 5.8(H) 3.3 - 4.4 C [facility] Blood 02/02/2018 1:45 PM EDT 02/02/2018 1:51 PM EDT us Rafael Culver MD LAB BLOOD ORDERABLES Final Resu lt [facility] [address] [place] [address] from Last 3 Months or Most Recently Relevant to Health Maintenance Insurance [place] [address] [place] [address] ACO ACO Advance Directives For more information, please contact: [phone] (9AM - 5PM [place], Monday-Monday) * Full Code (Presumed) (Latest Code Status on File) Date Activated Date Inactivated Comments 12/11/2018 12:01 PM 12/11/2018 4:27 PM * Full Code (Presumed) Date Activated Date Inactivated Comments 12/10/2018 5:10 AM 12/10/2018 7:37 AM * Full Code (Presumed) Date Activated Date Inactivated Comments 11/18/2018 4:06 PM 11/18/2018 6:41 PM * Full Code (Presumed) Date Activated Date Inactivated Comments 10/10/2018 2:08 PM 10/10/2018 6:20 PM Care Teams Supervisor [employer] Relationship Specialty Start Date End Date Elise Loaiza MD [facility] [place] [address] PCP - General Internal Medicine 08/09/18 Additional Source Comments The information contained in this document represents components of the legal health record. It is not the complete legal health record.[facility]
--- OUTSIDE RECORDS SUMMARY | 2025-02-20 21:02 | XMS_ITS | Clinical Summary ---
Author Organization [facility] Address [address] [place] [address] Care Team Providers Care Stock Preparation Operator Name Role Phone Linsey Mullins PA-C Primary Care Provider [phone] Source Comments PLEASE NOTE, if this patient [...] [address] Insurance [place] MEDICAID Care Teams Stock Preparation Operator Relationship Specialty Start Date End Date Linsey Mullins PA-C [address] [place] [address] PCP - General 07/24/18
[2025-02-21 00:32] VITALS: BP 148/91; PULSE 107; RESP 16; TEMP 36.8; O2SAT 99
== END 2025-02-21 00:32 | disposition home or self-care (01) ==
PROVIDERS: Physician Assistant Medical; Emergency Provider Student in an Organized Health Care Education/Training Program; PCP Internal Medicine
DX: N20.0 Calculus of kidney (principal); R10.2 Pelvic and perineal pain; Z79.899 Other long term (current) drug therapy
CPT/HCPCS: 36415; 74176; 80048; 80076; 81001; 83690; 83735; 85025; 99282; 99284

== ENCOUNTER → 2025-02-20 22:53 | Outpatient (BNV) | payer OTHER, SELFPAY | PROVIDERS: Emergency Provider Student in an Organized Health Care Education/Training Program; PCP Internal Medicine; Visit Provider Student in an Organized Health Care Education/Training Program | DX: N20.2 Calculus of kidney with calculus of ureter (principal) | CPT/HCPCS: 74176 ==

== ENCOUNTER 2025-04-14 13:27 | Outpatient (REF) | payer OTHER, SELFPAY | END 2025-04-14 13:28 | disposition home or self-care (01) | LOC: HO.LAB 13:27 | PROVIDERS: PCP Internal Medicine; Visit Provider Nurse Practitioner Family | DX: N20.0 Calculus of kidney (principal); R31.29 Other microscopic hematuria; R39.15 Urgency of urination; R10.9 Unspecified abdominal pain; Z13.89 Encounter for screening for other disorder; Z87.891 Personal history of nicotine dependence | CPT/HCPCS: 81003; 88112; 99212 ==

== ENCOUNTER 2025-04-14 13:27 | Outpatient (AMB) | payer OTHER, SELFPAY ==
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
== END 2025-04-14 14:08 | disposition home or self-care (01) ==
LOC: HO.HUSH 13:28
PROVIDERS: PCP Internal Medicine; Visit Provider Nurse Practitioner Family
DX: N20.0 Calculus of kidney (principal); R31.29 Other microscopic hematuria; Z87.891 Personal history of nicotine dependence; Z13.9 Encounter for screening, unspecified
CPT/HCPCS: 99214

== ENCOUNTER 2025-04-15 15:02 | Outpatient (AMB) | payer OTHER, SELFPAY ==
[2025-04-15 15:08] VITALS: BMI 41.0
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
== END 2025-04-15 15:36 | disposition home or self-care (01) ==
LOC: HO.HPODS 15:04
PROVIDERS: PCP Internal Medicine; Visit Provider Student in an Organized Health Care Education/Training Program
DX: M79.671 Pain in right foot (principal); M79.672 Pain in left foot; M72.2 Plantar fascial fibromatosis; M77.31 Calcaneal spur, right foot; M77.32 Calcaneal spur, left foot
CPT/HCPCS: 99204

== ENCOUNTER → 2025-04-15 15:02 | Outpatient (BNVA) | payer OTHER, SELFPAY | PROVIDERS: PCP Internal Medicine; Visit Provider Student in an Organized Health Care Education/Training Program | DX: M72.2 Plantar fascial fibromatosis (principal); M77.31 Calcaneal spur, right foot; M77.32 Calcaneal spur, left foot | CPT/HCPCS: 99202 ==